=== PATIENT | female | born 1940 | race Caucasian/White ===

== ENCOUNTER 2017-06-16 11:30 | Inpatient (IN) ==
[2017-06-16] MEDS ORDERED: ZOFRAN IV ONE (12:40)
[2017-06-16] MEDS ORDERED: DILAUDID IM ONE (12:40)
[2017-06-16 12:45] LABS: MANUAL DIFF NEEDED? NO
[2017-06-16 12:51] LABS: BASO% 0.5 % (0.0-0.8); EOS# 0.16 X1000 (0.0-0.7); EOS% 1.9 % (0.0-10.0); HEMATOCRIT 39.9 % (37.0-47.0); HEMOGLOBIN 13.2 g/dL (12.0-16.0); IMM GRAN# 0.02 X1000 (0.0-0.04); IMM GRAN% 0.2 % (0.0-0.5); LYMPH# 1.77 X1000 (1.2-3.4); LYMPH% 21.3 % (20.5-51.1); MCH 31.3 PG (27-31); MCHC 33.1 g/dL (33-37); MCV 94.5 FL (81-99); MONO# 0.54 X1000 (0.11-0.59); MONO% 6.5 % (1.7-9.3); MPV 10.4 FL (7.4-10.4); NEUT% 69.6 % (42.2-75.2); PLT 198 X1000 (130-400); RBC 4.22 XMIL (4.2-5.4)
[2017-06-16 13:04] LABS: AGAP 9; ALBUMIN 4.3 g/dL (3.5-5.0); ALKALINE PHOSPHATASE 58 U/L (32-104); BUN 14 mg/dL (8-22); CALCIUM 9.4 mg/dL (8.8-10.2); CHLORIDE 100 mmol/L (98-107); COSMO 278; GOT 15 U/L (10-30); GPT 9 U/L (10-36); POTASSIUM 4.5 mmol/L (3.5-5.1); SODIUM 139 mmol/L (136-145); TCO2 30 mmol/L (25-35); TOTAL BILIRUBIN 0.48 mg/dL (0.20-1.00); TOTAL PROTEIN 6.9 g/dL (6.3-8.3)
--- NOTE | 2017-06-16 14:02 | Diag Imaging Result Doc PS360 ---
EXAM: CT ABD/PELVIS W/ IV CONT ONLY HISTORY: abd pain TECHNIQUE: CT abdomen and pelvis with intravenous contrast. Dose reduction protocol. COMPARISON: 01/19/2015 FINDINGS: Heart is mildly enlarged. The gallbladder has been removed. Biliary dilatation is similar to the prior exam. No focal hepatic abnormality. Normal spleen, pancreas, and adrenal glands. The right renal pelvis and calyces are mildly dilated. No dilatation beyond the ureteropelvic junction. No solid renal masses. Moderate atherosclerosis. No aneurysmal dilatation to the aorta. There is an anterior abdominal wall mesh from prior hernia repair. There is weakening weakening along the superior border which contains bowel, but no wall thickening or obstruction. Large hernia in the anterior pelvic wall containing multiple bowel loops. Several small bowel loops within this are dilated. Several lobes appear somewhat twisted. The descending colon lies within a hernia laterally, but it is not dilated. There are multiple surgical clips within and about the bowel loops in the mid and lower portion of the hernia. The uterus has been removed. There are scattered colonic diverticula. No pelvic mass. IMPRESSION: 1.Large anterior pelvic wall hernia or hernias containing multiple bowel loops. I believe there is at least a partial small bowel obstruction. 2.Cholecystectomy 3.I believe there is a right-sided ureteropelvic junction obstruction 4.Atherosclerosis 5.Diverticulosis 6.Hysterectomy Electronically signed by Mika Armas 06/16/2017 1:59 PM
[2017-06-16 16:04] LABS: URINE CULTURE NEEDED? NO; URINE MICRO REVIEW NEEDED? NO; URINE SOURCE CLEAN CATCH
[2017-06-16 16:09] LABS: BILIRUBIN URINE NEGATIVE (NEGATIVE); BLOOD URINE NEGATIVE (NEGATIVE); COLOR YELLOW; GLUCOSE URINE NEGATIVE (NEGATIVE); LEUKOCYTES URINE NEGATIVE (NEGATIVE); NITRITE URINE NEGATIVE (NEGATIVE); PROTEIN URINE NEGATIVE (NEGATIVE); SP GRAVITY URINE 1.015; TURBIDITY URINE CLEAR (CLEAR); UR EPITHELIAL CELLS <10 /HPF (<10); URINE BACTERIA NEGATIVE /HPF; URINE RBC <10 /HPF (<10); URINE WBC <10 /HPF (<10); UROBILINOGEN URINE NORMAL (NORMAL)
[2017-06-16] MEDS ORDERED: DILAUDID IV ONE (17:05)
--- NOTE | 2017-06-16 17:34 | PROVIDER DOCUMENTATION ---
This chart was entered by Jannette Jimenez Scribe, acting as scribe for Otilia Peter MD. HPI-Abdominal Pain/GI Problem - General Chief Complaint: Abdominal Pain Stated Complaint: ABDOMINAL PAIN Time Seen by Provider: 06/16/17 12:07 Source: patient Allergies/Adverse Reactions: Patient Allergies Allergy/AdvReac Type Severity Reaction Status Date / Time lorazepam [From Ativan] AdvReac Unknown Verified 06/16/17 11:55 Home Medications: Home Medication List Medication Instructions Recorded Confirmed Last Taken Type Dexlansoprazole [Dexilant] 60 mg PO BID 01/29/14 06/16/17 06/16/17 08:00 History Levothyroxine [Synthroid] 25 microgm PO DAILY 01/29/14 06/16/17 06/16/17 08:00 History Metoprolol Succinate E.r. [Toprol 25 mg PO DAILY #0 tablet 09/09/14 06/16/17 08:00 Rx Xl] Amlodipine Besylate [Norvasc] 5 mg PO DAILY 12/02/16 06/16/17 06/16/17 08:00 History Gabapentin 600 mg PO TID 12/02/16 06/16/17 06/16/17 08:00 History Apixaban [Eliquis] 5 mg PO BID #60 tablet 12/07/16 06/16/17 06/16/17 08:00 Rx LISINOpril [Prinivil] 20 mg PO DAILY 06/16/17 06/16/17 06/16/17 08:00 History - History of Present Illness-ABD Nature of Presenting Problems: Pt is a 76 year old female who came to the ED with a cc of her hernias causing her pain. Pt has two large hernias. Abdominal Pain Onset Location: reports: periumbilical, generalized abdomen Pain Radiation: reports: no radiation Quality of Pain: reports: sharp Onset/Duration: reports: unsure Timing: reports: still present Activities at Onset: reports: none Modifying Factors: improves with: nothing Associated Symptoms: reports: denies symptoms Last BM: unsure Dark Stools Present?: reports: none noticed Rectal Bleeding: reports: none Rectal Pain: reports: none Bruising or Bleeding Gums?: No Similar Symptoms Previously?: Yes Recently seen or treated by another doctor?: No Review of Systems - Adult - REVIEW OF SYSTEMS - ADULT Constitutional: denies: chills, fever Eyes: reports: no symptoms reported Ears, Nose, Mouth & Throat: denies: ear pain, throat pain Cardiovascular: reports: no symptoms reported Respiratory: denies: cough, shortness of breath Gastrointestinal: reports: abdominal pain. denies: diarrhea, nausea, vomiting Genitourinary: reports: no symptoms reported Musculoskeletal: denies: joint pain, neck pain Integumentary: reports: no symptoms reported Neurological: reports: no symptoms reported Psychiatric: reports: no symptoms reported Endocrine: reports: no symptoms reported Hematologic/Lymphatic: reports: no symptoms reported Allergic/Immunologic: reports: no symptoms reported All Other Systems: Reviewed and Negative Past History - Adult - PAST MEDICAL HISTORY-ADULT Review of Records: reports: Old Records Reviewed, Nursing Assessment Review Major Childhood Illnesses: reports: denies history Cardiovascular: reports: cardiac disease, HTN, hyperlipidemia, [place] Respiratory: reports: denies history Gastrointestinal: reports: obstruction, other (hernia) Obstetrical/Gynecological: reports: denies history Genitourinary: reports: denies history Musculoskeletal: reports: denies history Neurological: reports: CVA Psychiatric: reports: denies history Endocrine/Immune: reports: denies history Other Conditions: reports: deaf/hard of hearing - PRIOR SURGERIES/PROCEDURES Surgical/Procedure History: reports: cholecystectomy, bowel surgery (obstruction ) - PRIOR HOSPITALIZATIONS Prior Hospitalizations: reports: for similar symptoms - IMMUNIZATION STATUS Childhood Immunizations: UTD Flu Vaccine: NUTD - FAMILY HISTORY Family History: reviewed, not pertinent Physical Exam-General - PHYSICAL EXAM-ADULT Initial Vital Signs Reviewed: Yes - CONSTITUTIONAL General Appearance: alert, mild distress - EYES Eyes: PERRL/EOMI, pink conjunctivae - HEAD, EARS, NOSE, MOUTH & THROAT HENMT: normocephalic/atraumatic, moist mucous membranes - NECK Neck: non-tender, full range of motion - RESPIRATORY Respiratory: chest non-tender, lungs clear, normal breath sounds - CARDIOVASCULAR Cardiovascular: normal peripheral pulses, regular rate, rhythm - GASTROINTESTINAL (ABDOMEN) Abdominal Exam: tenderness, hernia - MUSCULOSKELETAL Back Exam: normal inspection, no CVA tenderness Extremity: normal range of motion, non-tender - SKIN Integumentary: normal color, normal turgor - NEUROLOGIC Neurologic: grossly normal - PSYCHIATRIC Psych/Mental Status: normal mood/affect, normal thought content, normal thought process, oriented x 3 Progress - PLAN OF CARE/RESULTS Progress/Plan/Lab Results: Vital Signs - 8 hr 06/16/17 11:32 Temperature 98.4 F Pulse Rate 65 Respiratory Rate 18 Blood Pressure 172/97 O2 Sat by Pulse Oximetry 97 Result Diagrams: 06/16/17 12:09 06/16/17 12:09 - CT/MRI 1 CT Study: Abdomen (1. large anterior pelvic wll hernia or hernias containing multiple bowel loops. I believe there is at least a partial small bowel obstruction. 2. cholecystectomy 3. i believe there is a right sided ureteropelvic junction obstrucion. 4. atherosclerosis. 5. diverticulosis. 6. hysterectomy.) - CONSULTS/PCP/HOSPITALIST Notification #1 *Consult/PCP/Hospitalist*: Dr. Asher Rizvi Discussed: 14:43 (Discussed with Dr. Sterling and agreed to see the pt ) Consult Disposition: F/U in office #2 Consult: Dr. Isreal Rizvi Discussed: 17:33 Reason/Comments: Possible sbo Departure - Departure Date of Disposition Decision: 06/16/17 Time of Disposition Decision: 17:33 DIAGNOSIS: Ventral hernia, Small bowel obstruction Disposition: [place] [id number] Certified Medical Emergency: Emergent Condition: Stable Additional Freetext Instructions: ED Follow Up Instructions: You have been treated by a care provider in the Emergency Department. These instructions are being provided to you so you can have an understanding of how to care for yourself upon discharge. Upon discharge from the Emergency Department, you are responsible for making arrangements for follow-up care by a physician of your choice. Take all prescribed medications as directed. Return to the Emergency Department immediately for any new or worsening symptoms. You may call the Physician Referral phone number at [phone] to obtain a list of Physicians who are taking new patients. Referrals and Follow-Ups: Alexys Jin MD [Primary Care Provider] - Neptali Sterling MD [ACTIVE STAFF PHYSICIAN] - - Critical Care Note This patient required my direct & personal management of CC.: No This chart was documented by the indicated scribe, (Jannette Jimenez Scribe) and accurately reflects the services I performed and decisions made by me, Otilia Peter MD, as attested by the provider's signature.
[2017-06-16] MEDS ORDERED: FLEET ENEMA PR ONE (17:35)
--- NOTE | 2017-06-16 18:07 | CONSULTATION ---
DATE OF CONSULTATION: 06/16/2017 REASON FOR CONSULTATION: Ventral hernia with small bowel obstruction. HISTORY OF PRESENT ILLNESS: This is a 76-year-old female, well known to me from previous admissions for similar symptoms who was in her usual state of health until this morning around 8 a.m. she experienced a lot of generalized abdominal crampy pain with nausea. She had a bowel movement this morning which was normal. She has been having regular bowel movements. There are no exacerbating or relieving factors. This is similar to her prior presentations. She has been evaluated by multiple surgeons at different facilities and elective hernia repair has been deferred due to the high morbidity and mortality risks for this patient. PAST MEDICAL HISTORY: Gastroesophageal reflux disease, hypertension, hypothyroidism, constipation, coronary artery disease, history of stroke, congestive heart failure, cardiomegaly. Paroxysmal atrial fibrillation. PAST SURGICAL HISTORY: Total abdominal hysterectomy, appendectomy, cholecystectomy, incisional hernia repair. FAMILY HISTORY: Diabetes, [place], hypertension and stroke. SOCIAL HISTORY: She is but has an attentive family. She denies tobacco or alcohol use. ALLERGIES: No known drug allergies but she has severe reactions to Ativan. HOME MEDICATIONS: Synthroid, Dexilant, Toprol, Norvasc, gabapentin, Eliquis, Prinivil. REVIEW OF SYSTEMS: Ten systems reviewed and negative except as noted above. PHYSICAL EXAM: Temperature 98 degrees, pulse 57, respiratory rate 16, blood pressure 178/87, O2 saturation 99%. General: This is an elderly obese female who is in no acute distress. HEENT: Normocephalic, atraumatic. Extraocular muscles intact. Pupils equal, round, reactive to light. Sclerae anicteric. Neck: Supple. No thyromegaly. CV: Regular rate and rhythm. Respiratory: Bilateral equal breath sounds. No work of breathing. GI: She has a large abdominal girth. She has a very large ventral hernia with multiple loops of what appeared to be small and large bowel near the skin. There appears to be of fairly significant loss of domain. The bowel loops are at least partially reducible. She is moderately tender diffusely. There is no overlying skin erythema or skin breakdown. She does have bowel sounds. There is no rebound or guarding. Extremities: No clubbing, cyanosis, or edema. Skin: Warm and dry. No rash. Musculoskeletal: Moves all extremities weakly, but equally. LABORATORY: White blood cell count 8, hemoglobin 13, platelet count 198,000. Complete metabolic profile reviewed and unremarkable. Urinalysis negative. IMAGING: CT of abdomen and pelvis was reviewed by me. There is a large anterior pelvic wall hernia or multiple hernias containing multiple bowel loops and at least a partial small bowel obstruction. The right renal pelvis and calices are mildly dilated which may indicate right-sided ureteropelvic junction obstruction. ASSESSMENT AND PLAN: A 76-year-old female with chronic gigantic ventral hernia with partial small bowel obstruction. Again, this is a very difficult problem for her. The operative risks are very high. I have recommended bowel rest, NG tube placement, hydration, gentle bowel stimulation through the nasogastric tube and continued observation. Hopefully we can get her referred to a center with more experience in complex hernia repair and abdominal wall reconstruction in the future. cc: Neptali Sterling MD
--- NOTE | 2017-06-16 18:46 | HISTORY AND PHYSICAL ---
TIME OF ADMISSION: 1745 PRIMARY CARE PHYSICIAN: Alexys Jin MD. SURGEON: Dr. freire/Dr. Sterling. PRESENTING COMPLAINT: Abdominal pain. HISTORY OF PRESENTING COMPLAINT: Ms. Jerry is a 76-year-old, female, with a history of a large ventral hernia that has been deemed inoperable. Has been admitted multiple times here. Has been evaluated by most of our surgeons. Patient has also been evaluated in [place] and they will not do any surgery because of her risk. Patient was last admitted over here in [facility], November 2016, was discharged after about 5 days for the same abdominal pain and small bowel obstruction. The patient referred that she was doing relatively fine until today. She started having severe periumbilical abdominal discomfort which progressively went from about 4 to about 8 to 9/10. Excruciating, periumbilical, radiating to both flanks. Associated with some nausea, but no vomiting. Regular bowel movement. Patient decided to come to the emergency room where she was evaluated and a CT scan of the abdomen revealed small bowel obstruction. Patient was evaluated by Dr. Sterling and my understanding is that he is going to observe the patient to see if the bowel obstruction resolves with medical therapy. PAST MEDICAL HISTORY: 1. Known ventral hernia with multiple small bowel obstructions. 2. Hypertension. 3. Hypothyroidism. 4. GERD. 5. History of cerebrovascular accident. PAST SURGICAL HISTORY: 1. Incisional repair of ventral hernia with multiple reversions. 2. Hysterectomy. 3. Open cholecystectomy. 4. Bilateral knee replacement. FAMILY HISTORY: Noncontributory. ALLERGIES: To lorazepam. SOCIAL HISTORY: Patient denies tobacco, alcohol, or drug use. REVIEW OF SYSTEMS: Fourteen-point review of systems conducted with the patient. Unremarkable except what we have in the HPI. Specifically, patient denies any chest pain, shortness of breath. No urinary symptoms. PHYSICAL EXAM: VITAL SIGNS: Blood pressure is 178/87, pulse of 57, respiration is 16, temperature 98.4. GENERAL EXAM: Ms. Jerry is a 76-year-old, obese female. She is on bed. Does not seems to be in any remarkable distress. HEENT: Mucosa is pink, slightly dry. Anicteric. Acyanotic. NECK: Supple. CHEST: Good air entry bilateral. No crepitations. No rhonchi. No accessory muscle use and no retractions. CARDIOVASCULAR: Regular rate and rhythm. There is no murmur, no rubs, no gallops. [place] is palpable at the 5th intercostal space. ABDOMEN: Soft. It is distended. There are 2 different swellings, more so periumbilical and in the lower abdomen, which is hard. It is tender to palpate and it is not reducible. There are bowel sounds in both swellings, which is consistent with her hernias. Bowel sounds present in other parts of the abdomen. There is no hepatosplenomegaly. There are multiple scars on the anterior abdominal wall. EXTREMITIES: No pedal edema. Distal pulses are present. 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 Executive function seems to be intact. Cranial nerves 2-12 have been grossly examined. They are unremarkable except that patient is slightly hard of hearing. Motor is 5/5 in all extremities. There is no sensory deficit. PSYCH: Patient has good judgment and understanding of her disease. LABORATORY DATA: WBC is 8.32, hemoglobin is 13.2, platelet count of 198. There is no abnormal abnormality found in the differential. Sodium is 138, potassium is 4.5, chloride is 100, bicarb is 30, BUN is 14, creatinine 0.4. Urinalysis is completely unremarkable. A CT scan of the abdomen and pelvis shows a large anterior pelvis wall hernia or hernias, containing multiple bowel loops. At least a partial small bowel obstruction. Suspicion of a right-side ureteropelvic junction obstruction. ASSESSMENT: Ms. Jerry is a 76-year-old, female with multiple admissions for abdominal pain, secondary to small-bowel obstruction from ventral hernia. She has presented with similar complaint. 1. Intractable abdominal pain secondary to partial small bowel obstruction. 2. Large anterior abdominal wall hernias with possible incarceration. 3. Questionable right ureteropelvic junction obstruction. 4. Gastroesophageal reflux disease. PLAN: We are going to admit the patient to the medical floor. NG tube has already been ordered by the surgeons. We will also consult Urology to evaluate for the possible right ureteropelvic junction with mild hydronephrosis. We will do an ultrasound to double check on that. We will start the patient on adequate hydration. Hopefully, the partial small bowel obstruction resolves on its own without need for any intervention. We will repeat a KUB tomorrow morning to follow up on the gas distention. cc: Ruddy Sanchez MD
[2017-06-16] MEDS: NS 1,000 ML IV SCH (19:08)
[2017-06-16] MEDS: MORPHINE IV PRN (20:54)
--- NOTE | 2017-06-16 21:37 | Diag Imaging Result Doc PS360 ---
EXAM: CHEST/ABD TUBE PLACEMENT HISTORY: check tube placement TECHNIQUE: Portable chest abdomen COMPARISON: None. FINDINGS: A nasogastric tube overlies the esophagus and stomach. The lower lungs are clear. No free air beneath the diaphragm. IMPRESSION: Nasogastric tube overlies the esophagus and stomach. Electronically signed by Mika Armas 06/16/2017 9:34 PM
[2017-06-17] MEDS: MINERAL OIL PO SCH ×5 (04:35→21:57)
[2017-06-17] MEDS: NEURONTIN PO SCH ×5 (04:35→21:58)
[2017-06-17] MEDS: MILK OF MAGNESIA PO SCH ×5 (04:36→21:58)
[2017-06-17] MEDS: NS 1,000 ML IV SCH ×2 (06:29→21:59)
[2017-06-17] MEDS: SYNTHROID PO SCH (06:29)
[2017-06-17 06:56] LABS: MANUAL DIFF NEEDED? NO
[2017-06-17 07:07] LABS: BASO% 0.5 % (0.0-0.8); EOS% 3.2 % (0.0-10.0); HEMATOCRIT 40.8 % (37.0-47.0); HEMOGLOBIN 13.2 g/dL (12.0-16.0); LYMPH# 1.22 X1000 (1.2-3.4); LYMPH% 19.8 % (20.5-51.1); MCH 30.7 PG (27-31); MCHC 32.4 g/dL (33-37); MCV 94.9 FL (81-99); MONO# 0.63 X1000 (0.11-0.59); MONO% 10.2 % (1.7-9.3); MPV 10.1 FL (7.4-10.4); NEUT% 66.3 % (42.2-75.2); PLT 188 X1000 (130-400)
[2017-06-17 07:11] LABS: INR 0.98; PROTIME 10.3 Seconds (9.2-11.7)
[2017-06-17 07:31] LABS: AGAP 9; ALBUMIN 3.7 g/dL (3.5-5.0); ALKALINE PHOSPHATASE 66 U/L (32-104); BUN 12 mg/dL (8-22); CALCIUM 8.8 mg/dL (8.8-10.2); CHLORIDE 104 mmol/L (98-107); COSMO 283; GOT 24 U/L (10-30); GPT 15 U/L (10-36); POTASSIUM 3.9 mmol/L (3.5-5.1); SODIUM 142 mmol/L (136-145); TCO2 29 mmol/L (25-35); TOTAL BILIRUBIN 0.62 mg/dL (0.20-1.00); TOTAL PROTEIN 6.1 g/dL (6.3-8.3)
--- NOTE | 2017-06-17 08:09 | Diag Imaging Result Doc PS360 ---
EXAM: US RENAL 2 (RETROPER) COMPLETE HISTORY: right hydronephrosis TECHNIQUE: COMPARISON: CT from 06/16/2017 FINDINGS: The left kidney measures 12.3 x 5.3 x 5.0 cm. No renal stone or hydronephrosis. Normal echogenicity and cortical thickness. The urinary bladder is only mildly distended. The right kidney measures 11.5 x 4.2 x 4.2 cm. Normal echogenicity and cortical thickness. The pelvis is mildly dilated. No stones. IMPRESSION: Dilated right renal pelvis, but otherwise normal renal ultrasound. Electronically signed by Mika Armas 06/17/2017 8:07 AM
--- NOTE | 2017-06-17 08:15 | Diag Imaging Result Doc PS360 ---
EXAM: ABDOMEN FLAT/UPRIGHT HISTORY: sbo TECHNIQUE: Three views COMPARISON: 06/16/2017 FINDINGS: No free air beneath the diaphragm. There is a nasogastric tube over the stomach. There are several small bowel loops which remain slightly distended with air. The most distended loops are low lying over the low pelvis and right hip. No organomegaly. There is scoliosis with degenerative spine changes. Multiple surgical clips overlying the abdomen and pelvis. IMPRESSION: Persistent obstruction. Electronically signed by Mika Armas 06/17/2017 8:13 AM
[2017-06-17] MEDS: TOPROL XL PO SCH (08:51)
[2017-06-17] MEDS ORDERED: GOLYTELY PO ONE (09:00)
[2017-06-17] MEDS: MORPHINE IV PRN ×4 (09:25→21:58)
[2017-06-17] MEDS: ZOFRAN IV PRN ×3 (13:46→21:58)
--- NOTE | 2017-06-17 15:18 | PROGRESS NOTE ---
DATE: 06/17/2017 SUBJECTIVE: Today, Ms. Jerry refers to be still hurting in the abdomen, but she thinks is a little less than yesterday. OBJECTIVE: Vital Signs: Blood pressure is 115/54, pulse of 58, respirations 18, temperature 98.2 degrees. Patient is saturating 96% on room air. General: Ms. Jrery is a 76-year-old female. She is in bed not seemingly distressed. HEENT: Mucosa is slightly dry but anicteric and acyanotic. Neck is supple. Chest: Good air entry bilateral. No crepitations. No rhonchi. Cardiovascular: Regular rate and rhythm. Abdomen is soft. It is mildly tender around the hernia defects. Extremities: No pedal edema. OVERHAULER: Patient is awake and alert and oriented x4. There is no focal neurological deficit. LABORATORY DATA: Labs have been reviewed. CBC is completely normal. A CMP is completely normal. TSH is 0.47. An ultrasound of the renal shows dilated right renal pelvis but, otherwise, normal renal ultrasound. ASSESSMENT: 1. Intractable abdominal pain secondary to small bowel obstruction. 2. Large anterior abdominal wall hernias with possible incarcerations. 3. Right, mildly dilated uteropelvic junction. Patient is yet to be evaluated by urology. 4. Hypothyroidism. 5. Gastroesophageal reflux disease. In general, Ms. Jerry is relatively stable and seems to have shown some small progress. We are going to continue with the NG tube suction for bowel decompression, adequate hydration, and repeat her KUB for tomorrow morning to follow up on the bowel pattern. cc: Ruddy Sanchez MD
--- NOTE | 2017-06-17 15:27 | PROGRESS NOTE ---
DATE: 06/17/2017 SUBJECTIVE: The patient says her pain has improved some overnight. She has not passed any gas yet. OBJECTIVE: Vital signs: She is afebrile. Vital signs are stable. General: She is alert and oriented x3. No acute distress. CV: Regular rate and rhythm. Respiratory: No work of breathing. Gastrointestinal: Soft, less tender to palpation. Her large ventral hernias remain partially reducible. LABORATORY: White blood cell count 6, hemoglobin 13. Metabolic profile reviewed and unremarkable. IMAGING: Her abdominal x-ray this morning shows some persistent distended loops of small bowel, slightly distended with air. ASSESSMENT AND PLAN: A 76-year-old female with small-bowel obstruction associated with chronic gigantic ventral hernia. She has prohibitive operative risks. We are going to continue NG tube and bowel rest and place some GoLYTELY slowly through the NG tube. cc: Neptali Sterling MD
--- NOTE | 2017-06-17 19:00 | CONSULTATION ---
DATE OF CONSULTATION: 06/17/2017 ATTENDING AND REFERRING PHYSICIAN: Hospitalist. HISTORY OF PRESENT ILLNESS: This 76-year-old female was admitted with small bowel obstruction secondary to ventral hernias. A CT scan revealed possible right UPJ obstruction. The patient denies any urologic problems. She has had no flank pains. She denies any previous urologic surgery. She has no history of kidney stones. She states she rarely has a urinary tract infection. She has no history of hematuria. She states she was never told she had any abnormalities of her urinary system. PAST MEDICAL HISTORY: Hypertension, hypothyroidism, gastroesophageal reflux disease, peripheral vascular disease with history of CVA. She has no sequelae. She states she does have shortness of breath and has to have a very cool room or she becomes very uncomfortable. CURRENT MEDICATIONS: Are documented on the chart. PAST SURGICAL HISTORY: Cholecystectomy, ventral hernia repair with many revisions, bilateral knee arthroplasties. SOCIAL HISTORY: No tobacco or alcohol use. ALLERGIES: She is allergic to lorazepam. REVIEW OF SYSTEMS: She states she feels better since the NG tube was placed. She states she has this every few months or once a year and after NG tube decompression she feels much better. She currently states she is feeling better. She denies any problems with heart disease, diabetes, or history of seizures. PHYSICAL EXAMINATION: General: An obese, age apparent, normally developed, white female, oriented in all ways and cooperative. HEENT: Has an NG-tube in place. Otherwise normal. Lungs: Clear. Cardiovascular: Regular rate and rhythm. Abdomen: Obese with normal bowel sounds. Mildly tender with palpation but no guarding or rebound. Back: No CVA tenderness. Genitourinary: Deferred. Extremities: No clubbing, cyanosis, or edema. Neuro: No focal deficits. LABORATORY EVALUATION: Had normal serum electrolytes, BUN 12 creatinine 0.7. CBC has a white count of 6.17, hemoglobin 13.2, hematocrit of 40.8 and platelets are 188,000. Her CT scan is as noted in the HPI. A renal ultrasound confirms an extra renal pelvis which is a normal anatomic variant. She does not have ureteropelvic junction obstruction. IMPRESSION: Extrarenal pelvis which is a normal anatomic variant, normal urological evaluation. PLAN: This was discussed with the patient. She states she thought everything was normal in her urinary system. Nothing to add from a urological point of view. Thank you for this consultation. cc: El Burton MD
[2017-06-18] MEDS: MORPHINE IV PRN ×3 (02:36→21:14)
[2017-06-18] MEDS: ZOFRAN IV PRN ×3 (02:41→21:14)
[2017-06-18] MEDS: SYNTHROID PO SCH (06:16)
[2017-06-18] MEDS: NEURONTIN PO SCH ×3 (06:16→21:14)
[2017-06-18 06:30] LABS: MANUAL DIFF NEEDED? NO
[2017-06-18 06:37] LABS: BASO% 0.9 % (0.0-0.8); EOS# 0.25 X1000 (0.0-0.7); EOS% 3.6 % (0.0-10.0); HEMATOCRIT 38.9 % (37.0-47.0); HEMOGLOBIN 12.6 g/dL (12.0-16.0); LYMPH# 1.67 X1000 (1.2-3.4); LYMPH% 23.8 % (20.5-51.1); MCH 30.7 PG (27-31); MCHC 32.4 g/dL (33-37); MCV 94.9 FL (81-99); MONO# 0.65 X1000 (0.11-0.59); MONO% 9.3 % (1.7-9.3); NEUT% 62.4 % (42.2-75.2); PLT 170 X1000 (130-400)
[2017-06-18 06:57] LABS: AGAP 12; BUN 10 mg/dL (8-22); CALCIUM 8.8 mg/dL (8.8-10.2); CHLORIDE 104 mmol/L (98-107); COSMO 286; MAGNESIUM 2.5 mg/dL (1.5-2.7); POTASSIUM 4.5 mmol/L (3.5-5.1); SODIUM 144 mmol/L (136-145); TCO2 28 mmol/L (25-35)
[2017-06-18] MEDS: TOPROL XL PO SCH (08:04)
[2017-06-18] MEDS: MINERAL OIL PO SCH ×2 (08:04→21:14)
[2017-06-18] MEDS: MILK OF MAGNESIA PO SCH ×2 (08:04→21:13)
[2017-06-18] MEDS: NS 1,000 ML IV SCH ×2 (11:00→23:04)
--- NOTE | 2017-06-18 11:21 | Diag Imaging Result Doc PS360 ---
EXAM: ABDOMEN FLAT/UPRIGHT INDICATION: sbo TECHNIQUE: 3 views COMPARISON: 06/17/2017 FINDINGS: The NG tube is in stable position. There are persistent moderate distended loops of bowel involving the mid and lower abdomen consistent with known obstruction. It is approximately stable. There is no evidence of large volume free abdominal gas. The abdomen is stable, otherwise. IMPRESSION: Approximately stable distended loops of bowel as described. Electronically signed by Francisco Nunez 06/18/2017 11:19 AM
--- NOTE | 2017-06-18 14:29 | PROGRESS NOTE ---
DATE: 06/18/2017 SUBJECTIVE: The patient continues to complain of some abdominal pain. She is nauseated, but not vomiting. She has passed some gas overnight. OBJECTIVE: Vital Signs: She is afebrile. Vital signs are stable. General: She is awake and alert. No acute distress. Gastrointestinal: Soft, nondistended. She is moderately tender throughout. This is unchanged. No rebound or guarding. IMAGING: Her abdominal x-ray shows some stable, distended loops of bowel in the mid to lower abdomen. I do see quite a bit of colonic gas. ASSESSMENT AND PLAN: This is a 76-year-old female with a complicated large ventral hernia and associated small bowel obstruction. This appears to be slowly resolving. We will continue nasogastric tube decompression, bowel rest and slow bowel stim with GoLYTELY. cc: Neptali Sterling MD
--- NOTE | 2017-06-18 14:41 | PROGRESS NOTE ---
DATE: 06/18/2017 SUBJECTIVE: Today Ms. Jerry referred to be doing okay. Continues to have abdominal pain. No bowel movement. OBJECTIVE: Vital signs: Blood pressure is 137/69, pulse of 64, respirations 20 , temperature 98.4 degrees. General Appearance: Ms. Jerry is a 76-year-old female. She is in bed, no distress. HEENT: Mucosa is pink and moist. Anicteric. Acyanotic. Neck: Supple. Chest: Good air entry bilaterally. No crepitations. Cardiovascular: Regular rate and rhythm. Abdomen: Distended. Mildly tender around the hernia defects. Extremities: No pedal edema. PATIENT ACCESS REGISTRAR: Patient is awake, alert, and hard of hearing. LABORATORY DATA: WBC 7.02, hemoglobin is 12.6, platelet count of 178. Chemistries reviewed, completely normal. A KUB, which was done today, shows approximately stable distended loops of bowel. ASSESSMENT: 1. Intractable abdominal pain secondary to partial small bowel obstruction. 2. Large anterior ventral hernias with possible incarcerations. 3. Right, mildly dilated uteropelvic junction. The patient has already been evaluated by urology and they think this is a normal variant. 4. Hypothyroidism, stable. 5. Gastroesophageal reflux disease. So today we are going to continue the NG tube. We are going to continue NPO. Repeat the KUB for tomorrow morning. Patient is being followed also by Dr. Sterling and Dr. Burton. cc: Ruddy Sanchez MD MTDD
[2017-06-19] MEDS: ZOFRAN IV PRN (01:43)
[2017-06-19] MEDS: MORPHINE IV PRN (01:43)
[2017-06-19] MEDS: SYNTHROID PO SCH (06:51)
[2017-06-19] MEDS: NEURONTIN PO SCH ×3 (06:51→21:19)
--- NOTE | 2017-06-19 08:27 | Diag Imaging Result Doc PS360 ---
EXAM: KUB ABDOMEN INDICATION: SBO TECHNIQUE: 2 views COMPARISON: 06/18/2017 FINDINGS: NG tube is in stable position. The small bowel distention appears to have improved during the interval. Much of the abdominal gas is colonic on this study. The abdomen is stable, otherwise. IMPRESSION: Interval modest improvement of gaseous distention of small bowel. Electronically signed by Francisco Nunez 06/19/2017 8:24 AM
[2017-06-19] MEDS: MINERAL OIL PO SCH ×2 (09:10→21:19)
[2017-06-19] MEDS: MILK OF MAGNESIA PO SCH ×2 (09:10→21:19)
[2017-06-19] MEDS: TOPROL XL PO SCH (09:11)
--- NOTE | 2017-06-19 09:51 | PROGRESS NOTE ---
DATE: 06/19/2017 SUBJECTIVE: The patient says she feels significantly better. No more abdominal pain, nausea, or vomiting. She has had multiple bowel movements. OBJECTIVE: Vital Signs: She is afebrile. Vital signs are stable. She has had 3 recorded bowel movements. General: She is alert and oriented x3. No acute distress. Gastrointestinal: Soft, nontender, and nondistended. Stable partially incarcerated large ventral hernias. She does have good bowel sounds. Imaging: Her abdominal x-ray shows decrease in the small bowel dilation and increase in the colonic gas. ASSESSMENT/PLAN: A 76-year-old female with chronically incarcerated, partially reducible large ventral hernias. Her small bowel obstruction which was present on admission appears to be resolving. We will plan on removing the nasogastric tube today and starting her on a clear liquid diet and advance as tolerated. cc: Neptali Sterling MD
[2017-06-19] MEDS: NS 1,000 ML IV SCH ×2 (13:14→18:42)
--- NOTE | 2017-06-19 14:11 | PROGRESS NOTE ---
DATE: 06/19/2017 SUBJECTIVE: Today Ms. Jerry refers to be doing a lot better. She says she has had multiple bowel movements and that she really wants to see if she can eat anything. OBJECTIVE: General: Ms. Jerry is a 76-year-old female, she is in bed. She is not in any distress. HEENT: Mucosa is pink and moist. Anicteric. Acyanotic. Neck: Supple. Chest: Was clear. Cardiovascular: Regular rate and rhythm. Abdomen: Is soft, is nontender. There is still the ventral hernia defects but this seems reducible. LOKIE ENGINEER: Patient is awake and alert and oriented x4. There is no focal neurological deficit. LABORATORY DATA: None for today. DIAGNOSTIC STUDIES: A KUB which was done this morning shows interval modest improvement of gas distention of the small bowel. ASSESSMENT: 1. Partial small bowel obstruction. This seems to be improving. 2. Large anterior ventral hernia with possible incarceration improved. 3. Hypothyroidism. 4. Gastroesophageal reflux disease. 5. Obesity with body mass index of 35.6. So in general Ms. Jerry refers to be doing much better. X-rays also shows improvement and patient has been evaluated by Dr. Sterling and the plan is to remove the NG tube if residuals are low after it is been clamped for 6 hours and then start her on some clear liquid diet. cc: Ruddy Sanchez MD
[2017-06-20] MEDS: NS 1,000 ML IV SCH (01:35)
[2017-06-20 06:21] VITALS: BP 137/72
[2017-06-20] MEDS: SYNTHROID PO SCH (06:35)
[2017-06-20] MEDS: NEURONTIN PO SCH (06:35)
[2017-06-20 08:03] LABS: CHLORIDE 103 mmol/L (98-107); SODIUM 142 mmol/L (136-145)
[2017-06-20 08:14] LABS: AGAP 14; BUN 8 mg/dL (8-22); CALCIUM 8.6 mg/dL (8.8-10.2); COSMO 283; POTASSIUM 4.4 mmol/L (3.5-5.1); TCO2 26 mmol/L (25-35)
[2017-06-20] MEDS: TOPROL XL PO SCH (08:29)
[2017-06-20] MEDS: MINERAL OIL PO SCH (08:29)
[2017-06-20] MEDS: MILK OF MAGNESIA PO SCH (08:29)
--- NOTE | 2017-06-20 18:04 | PROGRESS NOTE ---
DATE: 06/20/2017 SUBJECTIVE: The patient denies abdominal pain, nausea, or vomiting. She has had several bowel movements and is passing gas. She is tolerating a liquid diet. OBJECTIVE: Vital Signs: She is afebrile. Vital signs are stable. General: She is alert and oriented x4. No acute distress. Gastrointestinal: Soft, nontender, nondistended. Stable ventral hernia. ASSESSMENT AND PLAN: A 76-year-old female with stable ventral hernia. Her bowel obstruction has resolved. She is to be discharged today. cc: Neptali Sterling MD
--- NOTE | 2017-06-21 06:50 | DISCHARGE SUMMARY ---
ADMISSION DATE: 06/16/2017 DISCHARGE DATE: 06/20/2017 CONSULTATIONS: Neptali Sterling MD with General Surgery and El Burton MD. PERTINENT PROCEDURES: 1. Abdomen and pelvis CT showed a large anterior palpable hernia or hernias containing multiple bowel loops with at least a partial small bowel obstruction, cholecystectomy, right-sided ureteropelvic junction obstruction, arterial sclerosis, diverticulosis, hysterectomy. 2. Renal ultrasound showed a dilated right renal pelvis but otherwise normal renal ultrasound. DISCHARGE DIAGNOSES: 1. Partial small bowel obstruction, resolved. 2. Large anterior ventral hernia with possible incarceration, status post nasogastric tube, improved, tolerating full liquid diet. 3. Hypothyroidism, aware. 4. Gastroesophageal reflux disease. Continue proton pump inhibitor. 5. Obesity with a body mass index of 35.6. 6. Questionable right ureteropelvic junction obstruction which was ruled a normal anatomic variant with a normal urologic evaluation by Dr. Burton. HOSPITAL COURSE: Briefly, Ms. Jerry is a 76-year-old female who is very well known to our service for history of a large ventral hernia that has been deemed inoperable. She has been admitted multiple times here for small-bowel obstruction. She has been evaluated by most of our surgeons here as well as outlying facilities. They will not do surgery on the patient because of her risk factors. She was last admitted here at [facility] in November of 2016 and was discharged after about 5 days for the same abdominal pain with small-bowel obstruction. She referred that she had been doing relatively fine until the day she came in when she started having severe periumbilical abdominal discomfort which progressively went from about a 4 to an 8 to 9/10, excruciating, radiating to both flanks, associated with some nausea but no vomiting. She had a regular bowel movement that morning. An abdomen and pelvis CT did show a large anterior pelvic wall hernia and hernia containing multiple bowel loops with partial small-bowel obstruction and a right-side ureteropelvic junction obstruction. An NG tube was placed. The patient underwent a renal ultrasound. Dr. Sterling was consulted and he recommended bowel rest, NG tube and hydration. Dr. Burton also assessed the patient for her extrarenal pelvis, which he said was a normal anatomic variant. Ms. Jerry slowly had improvement of her small-bowel obstruction. She was still having abdominal pain with nausea but no vomiting. She continued with her NG tube. Slowly she did start to feel better. She was slowly started on some GoLYTELY. She started having multiple bowel movements. She significantly started to feel better. Her abdominal pain and nausea resolved. Her NG tube was removed. She was started on a clear liquid diet and advanced to a full liquid diet which she has tolerated well. Dr. Sanchez has assessed the patient today and she is appropriate for discharge home. VITAL SIGNS: Temperature is 97.9 degrees, heart rate 57, blood pressure is 137/72, O2 is 96% on room air. DISCHARGE DIET: Full liquid and will advance as tolerated. DISCHARGE MEDICATIONS: 1. Norvasc 5 mg p.o. daily. 2. Eliquis 5 mg p.o. b.i.d. 3. Dexilant 60 mg p.o. b.i.d. 4. Gabapentin 600 mg p.o. t.i.d. 5. Synthroid 25 mcg p.o. daily. 6. Prinivil 20 mg p.o. daily. 7. Milk of magnesia 30 mL p.o. b.i.d. 8. Toprol-XL 25 mg p.o. daily. 9. Mineral oil 30 mL p.o. b.i.d. or 1 bottle. FOLLOWUP: Ms. Jerry is being discharged home. She will need to follow up with her primary care physician, Dr. Alexys Jin in 1-[address] Sterling as instructed. She will return to the ED for any worsening of symptoms. DISCHARGE TIME: 30 minutes. Dictated by MAHOGANY Roman for Ruddy Sanchez MD cc: Ruddy Sanchez MD
== END 2017-06-20 13:17 | disposition home or self-care (01) ==
LOC: SUPCPDRO → ED 11:30 → 3N 18:17
PROVIDERS: ATTEND Internal Medicine

== ENCOUNTER 2018-12-20 12:32 | Inpatient (IN) ==
[2018-12-20] MEDS ORDERED: NS 500 ML IV ONE (14:33)
[2018-12-20] MEDS ORDERED: MORPHINE IV ONE (14:34)
[2018-12-20] MEDS ORDERED: ZOFRAN IV ONE (14:34)
[2018-12-20] MEDS ORDERED: NS 1,000 ML ONE (15:36)
[2018-12-20 15:39] LABS: BASO# 0.01 X1000 (0.0-0.2); BASO% 0.1 % (0.0-0.8); EOS# 0.11 X1000 (0.0-0.7); EOS% 1.1 % (0.0-10.0); HEMATOCRIT 40.5 % (37.0-47.0); HEMOGLOBIN 12.8 g/dL (12.0-16.0); IMM GRAN# 0.03 X1000 (0.0-0.04); IMM GRAN% 0.3 % (0.0-0.5); LYMPH# 1.56 X1000 (1.2-3.4); LYMPH% 15.6 % (20.5-51.1); MCH 26.6 PG (27-31); MCHC 31.6 g/dL (33-37); MONO# 0.61 X1000 (0.11-0.59); MONO% 6.1 % (1.7-9.3); MPV 10.4 FL (7.4-10.4); NEUT# 7.65 X1000 (1.4-6.5); NEUT% 76.8 % (42.2-75.2); PLT 238 X1000 (130-400); RBC 4.82 XMIL (4.2-5.4); RDW 14.9 % (11.5-14.5); WBC 9.97 X1000 (4.8-10.8)
[2018-12-20 15:57] LABS: AGAP 12; ALB/GLOB RATIO 1.2; ALBUMIN 4.2 g/dL (3.5-5.0); ALKALINE PHOSPHATASE 84 U/L (32-104); AMYLASE 24 U/L (20-200); BUN 13 mg/dL (8-22); CALCIUM 9.3 mg/dL (8.8-10.2); CHLORIDE 102 mmol/L (98-107); COSMO 280; CREATININE 0.7 mg/dL (0.5-0.9); ESTIMATED GFR > 60; GLUCOSE 116 mg/dL (70-104); GOT 18 U/L (10-30); GPT 13 U/L (10-36); LIPASE 21 U/L (13-60); POTASSIUM 4.2 mmol/L (3.5-5.1); SODIUM 140 mmol/L (136-145); TCO2 26 mmol/L (25-35); TOTAL BILIRUBIN 0.24 mg/dL (0.20-1.00); TOTAL PROTEIN 7.6 g/dL (6.3-8.3)
--- NOTE | 2018-12-20 17:19 | Diag Imaging Result Doc PS360 ---
CT ABD/PELVIS W/IV CONT ONLY - 12/20/2018 INDICATION: abd pain/distention, large inguinal hernia COMPARISON: 11/07/2018 FINDINGS: The lung bases are clear and the heart size is normal. There our large complex ventral and inguinal hernias, stable from prior. There is a recurrent small bowel obstruction involving loops of small bowel in both the ventral hernia and right inguinal hernia sacs. There is some gas and stool throughout the colon and rectum. Urinary bladder remains normal. IMPRESSION: Partial recurrent small bowel obstruction involving both the ventral hernia and right inguinal hernia sacs. The obstructed bowel loops are actually slightly less dilated than prior. This exam was performed using automated exposure control, adjustment of mA or kV according to patient size, and/or use of iterative reconstruction technique Electronically signed by Archie Bermudez 12/20/2018 5:16 PM
[2018-12-20] MEDS ORDERED: DILAUDID IV ONE (17:21)
[2018-12-20] MEDS ORDERED: SODIUM CHLORIDE 0.9% INJ PRN (18:11)
[2018-12-20] MEDS ORDERED: LOPRESSOR IV PRN (18:11)
[2018-12-20 19:12] LABS: URINE SOURCE CLEAN CATCH
[2018-12-20 19:25] LABS: BILIRUBIN URINE NEGATIVE (NEGATIVE); BLOOD URINE NEGATIVE (NEGATIVE); COLOR YELLOW; GLUCOSE URINE NEGATIVE (NEGATIVE); KETONE URINE TRACE mg/dL (NEGATIVE); LEUKOCYTES URINE NEGATIVE (NEGATIVE); NITRITE URINE NEGATIVE (NEGATIVE); PH URINE 6.5; PROTEIN URINE NEGATIVE (NEGATIVE); SP GRAVITY URINE 1.024; TURBIDITY URINE CLEAR (CLEAR); UROBILINOGEN URINE NORMAL (NORMAL)
[2018-12-20 19:29] LABS: UR EPITHELIAL CELLS <10 /HPF (<10); URINE BACTERIA NEGATIVE /HPF; URINE RBC <10 /HPF (<10); URINE WBC <10 /HPF (<10)
--- NOTE | 2018-12-20 20:10 | HISTORY AND PHYSICAL ---
PRIMARY CARE PROVIDER: Dr. Jin. CHIEF COMPLAINT: Abdominal pain and sudden right bulge in the right lower quadrant. HISTORY OF PRESENT ILLNESS: Ms. Marilee Jerry is an 78-year-old female with a medical history of frequent small bowel obstructions since 1995 after hernia repair. Apparently, she is a nonsurgical candidate for any hernia repairs. She started having abdominal pain and swelling that started around 6:00 this morning. She has been having some dry heaves with nausea. She did go ahead and eat breakfast, which was egg and toast. She did have a large soft bowel movement and some chills. 2. Assessment reveals a right lower quadrant significant bulge that is tight with palpation, tender in all four quadrants, and her imaging CT of the abdomen and pelvis reveals that she has a partial small bowel obstruction that also includes or involves the ventral hernia and the right inguinal hernia. Dr. Gagnon has been made aware of this patient and will admit to the medical floor. She will have NG tube and will do bowel rest and IV fluids. PAST MEDICAL HISTORY: 1. Recurrent small bowel obstructions since 1995. 2. Ventral hernia that is inoperable. 3. Hypertension. 4. Hypothyroidism. 5. GERD. 6. Diabetes mellitus type 2. 7. Paroxysmal atrial fibrillation. 8. History of CVA. SURGICAL HISTORY: 1. Multiple abdominal surgeries with revisions and mesh placement. 2. Hysterectomy. 3. Cholecystectomy. 4. Appendectomy. 5. Bilateral knee arthroplasty. SOCIAL HISTORY: Denies tobacco, alcohol, or illicit drug use. She is very hard of hearing. FAMILY HISTORY: Denies. ALLERGIES: Ativan. HOME MEDICATIONS: Have not been verified, but what is listed from June of 2018 is Norvasc, Dexilant, diltiazem, Neurontin, Synthroid, Zofran, potassium, Eliquis, and mineral oil. REVIEW OF SYSTEMS: A 14-point review of systems are complete and all are negative except for those mentioned above in the HPI. The positives are dry heaves with nausea, swelling, and sudden swelling in the right lower quadrant with abdominal tenderness throughout, otherwise no other complaints. She does have chills as well. PHYSICAL EXAMINATION: VITAL SIGNS: Temperature 97.6. Heart rate 80. Respiratory rate 18. Blood pressure 168/92. O2 saturation 100% on room air. She is 5 ft 7 inches tall and weighs 220 pounds, BMI of 34.5. GENERAL: Ms. Marilee Jerry is an 78-year-old female. She is in no acute distress. She is able to answer questions appropriately. HEENT: Atraumatic and normocephalic. Pupils are equal, round and reactive to light. Extraocular movements were intact. Mucous membranes are dry. Poor dentition with teeth missing. NECK: Trachea midline. CARDIOVASCULAR: S1, S2, regular rate and rhythm. No rubs, gallops, or murmurs. No lower extremity edema. +2 dorsalis and radial pulses. Negative for JVD or carotid bruits. PULMONARY: Clear to auscultation with bilateral breath sounds. No accessory muscle use or work of breathing noted on room air. GASTROINTESTINAL: Semifirm, distended, hypoactive. Right lower quadrant with a bulge that is firm and tender in all four quadrants with palpation. EXTREMITIES: Moves all extremities equally. Decreased range of motion. 4/5 strength in all extremities. NEUROLOGICAL: Alert and oriented x3. Follows commands. Sensory is intact. SKIN: Warm, dry, and intact. LABORATORY DATA: White blood cells 9,000, hemoglobin 12, hematocrit 40, platelet count 238. Sodium 140, potassium 4.2, BUN 13, creatinine 0.7, glucose 116. Calcium 9.3, bilirubin 0.24, AST 18, ALT 13. Albumin 4.2. Amylase 24. Lipase 21. Lactate 1.3. IMAGING: Abdominopelvic CT which reveals partial recurrent small bowel obstruction involving both the ventral hernia and right inguinal hernia sacs. The obstructive bowel loops are actually slightly less dilated than prior. ASSESSMENT AND PLAN: 1. Partial recurrent small bowel obstruction involving the ventral hernia and right inguinal hernia. She will have a nasogastric tube placed due to her distended abdomen. Dr. Gagnon is aware and has been consulted. Apparently this hernia that she has in an inoperable hernia, so likely will just have to be all symptomatic treatment. Will do intravenous fluids at 125 an hour and hopefully this obstruction will quickly resolve. She takes multiple medications to help with bowel movements. She has bowel movements every single day and they are usually soft. She states that the mineral oil helps more than anything for her bowels. 2. Hypertension. Currently holding oral medications. Blood pressure is stable. 3. Hypothyroidism. Synthroid changed to intravenous. 4. Gastroesophageal reflux disease. She will be on intravenous Protonix. 5. Diabetes mellitus type 2. Will do patterned blood glucoses, sliding scale insulin. 6. Deep venous thrombosis prophylaxis. Sequential compression devices. Dictated by MAHOGANY Valenzuela for Jean Paul Mcgregor MD Addendum: Patient seen and examined by myself. Agree with MAHOGANY note. It reflects my assessment and plan. Patient is being admitted to hospital for recurrent SBO. Will place NG tube, consult Surgery, start IV fluids and check a abdomen x ray in the morning. Will monitor patient closely. cc: MAHOGANY Valenzuela MD David Francis, MD Matthew L. Figh, MD MTDD
--- NOTE | 2018-12-20 20:25 | Diag Imaging Result Doc PS360 ---
CHEST/ABD TUBE PLACEMENT - 12/20/2018 INDICATION: NG TUBE PLACEMENT COMPARISON: 11/07/2018 FINDINGS: There is a nasogastric tube in good position in the stomach. IMPRESSION: Nasogastric tube in good position in the stomach. Electronically signed by Archie Bermudez 12/20/2018 8:23 PM
[2018-12-20] MEDS: NS 1,000 ML IV SCH (20:49)
[2018-12-20] MEDS: PROTONIX IV SCH (20:49)
[2018-12-20] MEDS: SODIUM CHLORIDE 0.9% INJ SCH (20:50)
--- NOTE | 2018-12-20 21:44 | PROVIDER DOCUMENTATION ---
This chart was entered by Rosetta Nunez Scribe, acting as scribe for Sonny Kenny CRNP. HPI-Abdominal Pain/GI Problem - General Chief Complaint: Abdominal Pain Stated Complaint: abd pain Time Seen by Provider: 12/20/18 14:53 Source: patient, family, EMS Allergies/Adverse Reactions: Patient Allergies Allergy/AdvReac Type Severity Reaction Status Date / Time lorazepam [From Ativan] AdvReac Unknown Verified 11/07/18 17:14 Home Medications: Home Medication List Medication Instructions Recorded Confirmed Last Taken Type Dexlansoprazole [Dexilant] 60 mg PO BID 01/29/14 12/20/18 1 Day Ago History ~07/10/18 Levothyroxine [Synthroid] 25 microgm PO DAILY 01/29/14 12/20/18 1 Day Ago History ~07/10/18 Gabapentin 2 cap PO TID 12/02/16 12/20/18 1 Day Ago History ~07/10/18 Apixaban [Eliquis] 5 mg PO BID #60 tablet 12/07/16 12/20/18 1 Day Ago Rx ~07/10/18 Diltiazem HCl [Diltiazem ER] 120 mg PO DAILY 11/14/17 12/20/18 1 Day Ago History ~07/10/18 Potassium Chloride 10 meq PO DAILY 11/14/17 12/20/18 1 Day Ago History ~07/10/18 Amlodipine Besylate [Norvasc] 5 mg PO DAILY 11/07/18 12/20/18 Unknown History Azelastine 205.5 Mcg Nasal Spr 2 spray BUZZ BID 12/20/18 12/20/18 Unknown History [Astepro Nasal [place]] Cyproheptadine [Periactin] 1 tab PO DAILY 12/20/18 12/20/18 Unknown History Lactulose 30 ml PO BID 12/20/18 12/20/18 Unknown History - History of Present Illness-ABD Nature of Presenting Problems: Patient is an 78 yowf who complains of abdominal pain and distention. Hx of large right inguinal hernia "for years" and pt states this is where she is having. States she has had pain due to the hernia in the past and this episode began today. Pain associated with nausea. Hernia redicuble on exam and pt is non -toxic in appearance. Abdominal Pain Onset Location: reports: RLQ Pain Radiation: reports: no radiation Quality of Pain: reports: stabbing Severity in ED: reports: mild Onset/Duration: reports: gradual, this morning Timing: reports: still present Activities at Onset: reports: none Modifying Factors: improves with: nothing Associated Symptoms: reports: nausea Dark Stools Present?: reports: none noticed Rectal Bleeding: reports: none Bruising or Bleeding Gums?: No Similar Symptoms Previously?: Yes Recently seen or treated by another doctor?: No Review of Systems - Adult - REVIEW OF SYSTEMS - ADULT Constitutional: denies: chills, fever Eyes: reports: no symptoms reported Ears, Nose, Mouth & Throat: reports: no symptoms reported Cardiovascular: reports: no symptoms reported Respiratory: reports: no symptoms reported Gastrointestinal: reports: see HPI, abdominal pain, nausea. denies: constipation, diarrhea, difficulty swallowing, vomiting Genitourinary: reports: no symptoms reported Musculoskeletal: reports: no symptoms reported Integumentary: reports: no symptoms reported Neurological: reports: no symptoms reported Psychiatric: reports: no symptoms reported Endocrine: reports: no symptoms reported Hematologic/Lymphatic: reports: no symptoms reported Allergic/Immunologic: reports: no symptoms reported All Other Systems: Reviewed and Negative Past History - Adult - PAST MEDICAL HISTORY-ADULT Review of Records: reports: Old Records Reviewed, Nursing Assessment Review, Medications Reviewed, Social history reviewed & non-contributory. Major Childhood Illnesses: reports: denies history Cardiovascular: reports: cardiac disease, HTN, hyperlipidemia, NC Respiratory: reports: denies history Gastrointestinal: reports: obstruction, other (hernia) Obstetrical/Gynecological: reports: denies history Genitourinary: reports: denies history Musculoskeletal: reports: denies history Neurological: reports: CVA Psychiatric: reports: denies history Endocrine/Immune: reports: denies history Other Conditions: reports: deaf/hard of hearing - PRIOR SURGERIES/PROCEDURES Surgical/Procedure History: reports: cholecystectomy, hysterectomy, hernia repair, bowel surgery (obstruction), other (gall bladder) - PRIOR HOSPITALIZATIONS Prior Hospitalizations: reports: for similar symptoms - IMMUNIZATION STATUS Childhood Immunizations: UTD Flu Vaccine: NUTD - FAMILY HISTORY Family History: ulcers - SOCIAL HISTORY Smoking: denies Substance Use: denies Physical Exam-General - PHYSICAL EXAM-ADULT Initial Vital Signs Reviewed: Yes - CONSTITUTIONAL General Appearance: alert, moderate distress, obese. negative: lethargic, slow to respond - EYES Eyes: PERRL/EOMI, pale conjunctivae. negative: sclera injected, scleral icterus , sunken eyes - HEAD, EARS, NOSE, MOUTH & THROAT HENMT: normocephalic/atraumatic, moist mucous membranes - NECK Neck: non-tender, full range of motion, supple, normal inspection - RESPIRATORY Respiratory: chest non-tender, lungs clear, normal breath sounds, no pleuratic chest pain, no respiratory distress, no accessory muscle use - CARDIOVASCULAR Cardiovascular: normal peripheral pulses, regular rate, rhythm, no edema, no gallop, no JVD, no murmur - GASTROINTESTINAL (ABDOMEN) Abdominal Exam: abnormal bowel sounds (Bowel sounds hyperactive), distended, tenderness (rlq), hernia (Large- right inguinal, reducible) - LYMPHATIC Lymphatic: no adenopathy - MUSCULOSKELETAL Back Exam: normal inspection, no CVA tenderness, no vertebral tenderness Extremity: normal range of motion, non-tender, normal gait, normal inspection - SKIN Integumentary: normal color, warm/dry. negative: cyanosis, diaphoresis, jaundice, mottled, pallor - NEUROLOGIC Neurologic: grossly normal, no motor/sensory deficits - PSYCHIATRIC Psych/Mental Status: normal mood/affect, normal thought content, normal thought process, oriented x 3, anxious, tearful Progress - PLAN OF CARE/RESULTS Progress/Plan/Lab Results: Vital Signs - 8 hr 12/20/18 12:34 Temperature 97.6 F Pulse Rate 73 Respiratory Rate 18 Blood Pressure 168/92 O2 Sat by Pulse Oximetry 100 Orders Category Date Time Status AMYLASE [CHEM] Stat Lab 12/20/18 14:32 Uncollected CBC WITH DIFF [HEME] Stat Lab 12/20/18 14:32 Ordered COMPREHENSIVE METABOLIC PANEL [CHEM] Stat Lab 12/20/18 14:32 Uncollected LIPASE [CHEM] Stat Lab 12/20/18 14:32 Uncollected UA NIMS W/REFLEX CULT PL [URINALYSIS] Stat Lab 12/20/18 14:32 Uncollected 0.9% Sodium Chloride Inj [Ns] 500 ml Med 12/20/18 14:33 Active IV 100 mls/hr Morphine Med 12/20/18 14:34 Discontinued 2 mg IV NOW ONE Ondansetron [Zofran] Med 12/20/18 14:34 Discontinued 4 mg IV NOW ONE Discussed case with Dr. Gagnon who states to admit to [facility] and spoke with KAMRAN Carrasco who accepted admission and states she will enter orders. Will order NG tube. Discussed admission plan with pt who is in agreement. Result Diagrams: 12/20/18 15:12 12/20/18 15:12 - CT/MRI 1 CT Study: Abdomen (IMPRESSION: Partial recurrent small bowel obstruction involving both the ventral hernia and right inguinal hernia sacs. The obstructed bowel loops are actually slightly less dilated than prior. This exam was performed using automated exposure control, adjustment of mA or kV according to patient size, and/or use of iterative reconstruction technique Electronically signed by Archie Bermudez 12/20/2018 5:16 PM), other (pelvis) Impression: Normal - CONSULTS/PCP/HOSPITALIST Notification #1 *Consult/PCP/Hospitalist*: Dr. Gagnon Time Discussed: 17:30 Consult Disposition: Admit (to [facility]) #2 Consult: KAMRAN Carrasco Time Discussed: 15:34 Reason/Comments: states to insert NG tube and she will enter all other orders Consult Disposition: Admit Departure - Departure Date of Disposition Decision: 12/20/18 Time of Disposition Decision: 17:41 DIAGNOSIS: Bowel obstruction Qualifiers: Intestinal obstruction type: unspecified Intestinal obstruction extent: unspecified extent Qualified Code(s): K56.609 - Unspecified intestinal obstruction, unspecified as to partial versus complete obstruction Ventral hernia Qualifiers: Obstruction and gangrene presence: without obstruction or gangrene Qualified Code(s): K43.9 - Ventral hernia without obstruction or gangrene Abdominal pain Qualifiers: Abdominal location: unspecified location Qualified Code(s): R10.9 - Unspecified abdominal pain Disposition: ADMITTED INPATIENT 09 Certified Medical Emergency: Emergent Condition: Stable Referrals and Follow-Ups: Alexys Jin MD [Primary Care Provider] - - Critical Care Note This patient required my direct & personal management of CC.: No Attestation - Physician/ JOSE Attestation Patient care was provided by Advanced Practice Provider:: Yes Advanced Practice Provider:: Sonny Kenny Advanced Practice Provider documentation review:: The Mid-level provider documentation, treatment plan and medical decision making was reviewed by the physician who agrees with all treatment and medical decision making by the MLP. The physician spent face to face time with patient:: No Advanced Practice Provider documentation review:: Supervising physician onsite and consulted in the evaluation and care of this patient. The physician did not have a face to face encounter with the patient. This chart was documented by the indicated scribe, (Rosetta Nunez, Thong) and accurately reflects the services I performed and decisions made by , Sonny Kenny CRNP, as attested by the provider's signature.
[2018-12-21] MEDS: NS 1,000 ML IV SCH ×4 (05:14→23:44)
[2018-12-21] MEDS: MORPHINE IV PRN ×4 (05:18→23:41)
--- NOTE | 2018-12-21 05:34 | GENERAL SURGERY CONSULTATION ---
DATE: 12/21/2018 REQUESTING PHYSICIAN: Hospitalist service. REASON FOR CONSULTATION: Consult is concerning bowel obstruction. HPI: An 78-year-old female, well known to my service and my group, who has been having frequent small-bowel obstructions since her hernia repair in 1995. At that point, she had a huge piece of mesh placed in her abdomen. It has essentially made her nonsurgical candidate for any subsequent repairs. This episode, she started having abdominal pain on 6 a.m. on the morning of presentation, and some dry heaves and nausea. She did have a large bowel movement. She was seen in the emergency department after having this cramping abdominal pain. Had a CT scan that showed a bowel obstruction, although it is not as bad as it previously had been. I was asked to weigh in an opinion. She is currently having some discomfort, but she does not want to have any surgery. PAST MEDICAL HISTORY: 1. Recurrent small bowel obstruction. 2. Hypertension. 3. Hypothyroidism. 4. Gastroesophageal reflux disease. 5. Diabetes mellitus. 6. Proximal atrial fibrillation. 7. History of CVA. PAST SURGICAL HISTORY: 1. Multiple abdominal surgery repairs. 2. Hysterectomy. 3. Cholecystectomy. 4. Appendectomy. 5. Bilateral knees surgery. SOCIAL HISTORY: Denies alcohol, tobacco, or illicit drugs. FAMILY HISTORY: Reviewed with patient, but noncontributory. ALLERGIES: None. HOME MEDICATIONS: Of note, she is on Eliquis. REVIEW OF SYSTEMS: A full 10-point review of systems obtained and negative as specified in HPI. PHYSICAL EXAMINATION: Vital Signs: Patient is currently afebrile. Her vital signs are stable. General: No acute distress, but appears slightly uncomfortable. female looks stated age. HEENT: Normocephalic, atraumatic. Pupils equal, round, and reactive to light. Mucous membranes moist. Oropharynx benign. Neck: Supple. Trachea midline. Cardiovascular: Regular rate and rhythm. Lungs: Grossly clear. Abdomen: Soft. Large ventral hernia. Really no peritoneal signs at this time. Extremities: Moves all extremities. Neurologic: Grossly intact. Skin: No signs of jaundice. Vascular: All extremities perfused. LABORATORY: White blood cell count is 9, hematocrit 40, platelet count 238,000. Remainder of labs reviewed. CT scan independently reviewed, and radiology report reviewed and noted above. ASSESSMENT AND PLAN: An 78-year-old female with recurrent partial small bowel obstruction. 1. Recurrent partial small bowel obstruction. At this time, she essentially a nonoperative candidate. I do not think we can do anything surgically. At this point, I agree with NG tube decompression and conservative nonoperative management. We will see how she does. 2. Multiple medical comorbidities currently being managed by the hospitalist service. cc: Wayne Gagnon MD
--- NOTE | 2018-12-21 06:35 | Diag Imaging Result Doc PS360 ---
CHEST/ABD TUBE PLACEMENT - 12/21/2018 INDICATION: VERIFY NG TUBE PLACEMENT COMPARISON: 12/20/2018 FINDINGS: There is a stable nasogastric tube in good position in the stomach. IMPRESSION: Nasogastric tube in good position in the stomach. Electronically signed by Archie Bermudez 12/21/2018 6:32 AM
[2018-12-21 07:00] LABS: BASO# 0.01 X1000 (0.0-0.2); BASO% 0.1 % (0.0-0.8); EOS% 1.3 % (0.0-10.0); HEMOGLOBIN 11.4 g/dL (12.0-16.0); LYMPH# 1.28 X1000 (1.2-3.4); LYMPH% 16.9 % (20.5-51.1); MCHC 30.8 g/dL (33-37); MCV 84.5 FL (81-99); MONO# 0.64 X1000 (0.11-0.59); MONO% 8.5 % (1.7-9.3); MPV 10.3 FL (7.4-10.4); NEUT# 5.54 X1000 (1.4-6.5); NEUT% 73.2 % (42.2-75.2); PLT 215 X1000 (130-400); RBC 4.38 XMIL (4.2-5.4); WBC 7.57 X1000 (4.8-10.8)
[2018-12-21 07:06] LABS: INR 1.04; PROTIME 14.4 Seconds (11.0-16.0)
[2018-12-21 07:28] LABS: AGAP 10; ALB/GLOB RATIO 1.3; ALBUMIN 3.5 g/dL (3.5-5.0); ALKALINE PHOSPHATASE 73 U/L (32-104); BUN 14 mg/dL (8-22); CALCIUM 8.5 mg/dL (8.8-10.2); CHLORIDE 104 mmol/L (98-107); COSMO 282; CREATININE 0.7 mg/dL (0.5-0.9); ESTIMATED GFR > 60; GLUCOSE 96 mg/dL (70-104); GOT 15 U/L (10-30); GPT 10 U/L (10-36); MAGNESIUM 2.2 mg/dL (1.5-2.7); POTASSIUM 3.9 mmol/L (3.5-5.1); SODIUM 141 mmol/L (136-145); TCO2 27 mmol/L (25-35); TOTAL BILIRUBIN 0.46 mg/dL (0.20-1.00); TOTAL PROTEIN 6.3 g/dL (6.3-8.3)
[2018-12-21] MEDS: HUMULIN R SUBQ SCH ×5 (07:38→22:47)
[2018-12-21] MEDS: PROTONIX IV SCH ×2 (07:42→18:03)
[2018-12-21] MEDS: SYNTHROID IV SCH (07:49)
--- NOTE | 2018-12-21 12:20 | PROGRESS NOTE ---
DATE: 12/21/2018 SUBJECTIVE: Patient reports feeling fine. She is passing gases, but she has not had any bowel movement yet. OBJECTIVE: Vital Signs: Temperature 97.9 degrees, heart rate 77, respiratory rate 19, blood pressure 112/82, O2 saturation 97% on room air. General: This is an 78-year-old female lying in bed, in no acute distress. HEENT: Head is normocephalic, atraumatic. Mucous membranes dry. Neck: No JVD noted. No carotid bruits. No lymphadenopathy. No thyromegaly. Cardiovascular: S1, S2 heard. No murmurs, gallops, or rubs. Regular rate and rhythm. Respiratory: Clear bilaterally to auscultation. No work of breathing. No using accessory muscles. Abdomen: Soft, a little bit distended. Bowel sounds present but hypoactive. No signs of peritoneal irritation. Extremities: No clubbing, cyanosis, or edema. Peripheral pulses present in both legs. Neurological: Patient alert and oriented x3. Moves 4 extremities. LABORATORY DATA: CBC and BMP reviewed, both are within normal limits. ASSESSMENT AND PLAN: 1. Partial recurrent small bowel obstruction involving ventral hernia and right inguinal hernia. The patient has been evaluated by Dr. Gagnon from General Surgery. The patient is a nonsurgical candidate. He has been recommended conservative treatment only. We will continue with nasogastric tube and intravenous fluids. The patient clinically is feeling less nauseated. We will continue with the same management. 2. Hypertension. Blood pressure is now under control. We are holding of course all p.o. medications by now. 3. Hypothyroidism. Patient receiving intravenous Synthroid. Will continue with the same management. 4. Gastroesophageal reflux disease. We will continue with intravenous Protonix. She is not complaining of any abdominal pain or any heartburn. 5. Diabetes mellitus type 2. We will continue. Blood sugar is being check before meals and also at bedtime, on insulin sliding scale as well. 6. Disposition. We will continue to monitor this patient closely. As we mentioned before, she is not a candidate for any type of surgery. cc: Jean Paul Mcgregor MD
[2018-12-21] MEDS: SODIUM CHLORIDE 0.9% INJ SCH (18:03)
[2018-12-22] MEDS: MORPHINE IV PRN ×4 (03:22→21:48)
[2018-12-22] MEDS: NS 1,000 ML IV SCH ×3 (03:22→18:26)
[2018-12-22] MEDS: HUMULIN R SUBQ SCH ×4 (06:30→22:24)
[2018-12-22] MEDS: PROTONIX IV SCH ×2 (06:38→18:26)
[2018-12-22] MEDS: SYNTHROID IV SCH (06:39)
--- NOTE | 2018-12-22 07:22 | GENERAL SURGERY PROGRESS NOTE ---
DATE: 12/22/2018 SUBJECTIVE: The patient seems to be doing okay. She feels like her stomach is less distended. She is not nauseated. She does have a reported bowel movement. Her NG tube is not draining much. OBJECTIVE: Vital Signs: The patient is currently afebrile. Her vital signs are stable. General: No acute distress. HEENT: Normocephalic, atraumatic. Pupils equal, round, reactive to light. Mucous membranes moist. Oropharynx benign. Neck: Supple. Trachea midline. Cardiovascular: Regular rate and rhythm. Lungs: Grossly clear. Abdomen: Soft, less distended, nontender. Some bowel sounds auscultated. Extremities: Moves all extremities. Neurologic: Grossly intact. Skin: No signs of jaundice. Vascular: All extremities perfused. LABORATORY DATA: None this morning as of yet. ASSESSMENT AND PLAN: An 78-year-old female with recurrent partial small bowel obstruction. 1. Recurrent partial small bowel obstruction. At this time, I think she is already making some improvement. We will clamp her nasogastric tube and give her sips of clears. We will see how she does. No major surgical intervention planned at this time. We will continue to follow while she is in the hospital. My partner will follow her over the weekend. 2. Multiple medical comorbidities, currently being managed by the hospitalist service. cc: Wayne Gagnon MD
[2018-12-22] MEDS: HALDOL IV PRN ×3 (12:26→21:48)
--- NOTE | 2018-12-22 15:13 | PROGRESS NOTE ---
DATE: 12/22/2018 SUBJECTIVE: The patient reports hurting from the left nostril where the NG tube was placed. No other complaints noted. No abdominal pain. No diarrhea. She reports passing gas. OBJECTIVE: Vital Signs: Temperature 98.1 degrees, heart rate 74, respiratory rate 18, blood pressure 155/82, O2 saturation 98% on room air. General examination: This is an 78-year-old female, lying in bed in no acute distress. HEENT: Head is normocephalic, atraumatic. NG tube in place, clamped. Neck: No JVD noted. No carotid bruits. No lymphadenopathy. No thyromegaly. Cardiovascular exam: S1, S2 heard. No murmurs, gallops or rubs. Regular rate and rhythm. Respiratory exam: Clear bilaterally to auscultation. No work of breathing or using accessory muscles. Abdomen: Soft. A little bit distended, but nontender to palpation. Bowel sounds present, but hypoactive. No signs of peritoneal irritation. Extremities: No clubbing, cyanosis, or edema. Peripheral pulses present in both legs. Neurological exam: The patient is alert and oriented x3. Moves 4 extremities. ASSESSMENT AND PLAN: 1. Partial recurrent small bowel obstruction involving ventral hernia and right inguinal hernia. Clinically, this patient is getting better. According to Dr. Gagnon from General Surgery, she is a nonsurgical candidate, but globally she is doing good. At this time, they have decided to clamp the NG tube and see how she does. She also is on sips of water. If she does tolerate those, we can start a clear liquid diet, and we will go from there. 2. Hypertension. Blood pressure is under control. We will continue with the same management. 3. Hypothyroidism. The patient continues to receive intravenous Synthroid. 4. Gastroesophageal reflux disease. We will continue with Protonix. 5. Diabetes mellitus type 2. The patient is on Accu-Chek before meals and also at bedtime. 6. Disposition: At this point, we will continue following the lead from General Surgery. cc: Jean Paul Mcgregor MD
[2018-12-23] MEDS: NS 1,000 ML IV SCH ×3 (02:59→18:02)
[2018-12-23] MEDS: MORPHINE IV PRN (03:45)
[2018-12-23] MEDS: PROTONIX IV SCH ×2 (06:23→18:01)
[2018-12-23] MEDS: SYNTHROID IV SCH (06:23)
[2018-12-23] MEDS: SODIUM CHLORIDE 0.9% INJ SCH (06:23)
[2018-12-23] MEDS: HUMULIN R SUBQ SCH ×4 (06:30→21:06)
[2018-12-23] MEDS: DEMEROL IV PRN ×2 (10:18→18:15)
[2018-12-23] MEDS: HALDOL IV PRN ×2 (10:18→18:15)
--- NOTE | 2018-12-23 11:57 | PROGRESS NOTE ---
DATE: 12/23/2018 SUBJECTIVE: Patient is very hard of hearing. Reports still having some discomfort from the left nostril where the NG tube is placed. No acute issues noted as per nursing staff overnight. OBJECTIVE: Vital Signs: Temperature 98.1 degrees, heart rate 82, respiratory rate 20, blood pressure 157/75, O2 saturation 98% on room air. General Examination: This is a chronically ill- looking, 78-year-old female, lying in bed in no acute distress. Cardiovascular exam: S1, S2 heard. No murmurs, gallops, or rubs. Regular rate and rhythm. HEENT: Head is normocephalic, atraumatic with the NG tube in place. Respiratory exam: Clear bilaterally to auscultation. No work of breathing or using accessory muscles. Abdomen: Soft, a little bit distended, but nontender to palpation. Bowel sounds present, but hypoactive. No signs of peritoneal irritation. Extremities: No clubbing, cyanosis, or edema. Peripheral pulses present in both legs. Neurological exam: Patient alert and oriented x3. Moves 4 extremities. Patient maybe hard of hearing. LABORATORY DATA: None. ASSESSMENT AND PLAN: 1. Partial recurrent small bowel obstruction involving ventral hernia and right inguinal hernia. Clinically, this patient continues to improve, although he reports local pain in the left nostril. What I am going to do is to order an x-ray of the abdomen and, if it shows improvement, we will take that nasogastric tube out. Initial evaluation from General Surgery concluded she is not a surgical candidate. In any case, we will continue to monitor this patient closely. 2. Hypertension. Blood pressure is under control. We will continue with the same management. 3. Hypothyroidism. Patient is on Synthroid intravenously while she is not able to take anything by mouth. 4. Gastroesophageal reflux disease. We will continue with intravenous Protonix. 5. Diabetes mellitus type 2. Patient is on Accu-Chek before meals and also at bedtime, and insulin sliding scale as well. 6. Disposition: We will follow the lead from General Surgery. We will see if this small bowel obstruction is getting better or not. cc: Jean Paul Mcgregor MD
--- NOTE | 2018-12-23 14:51 | Diag Imaging Result Doc PS360 ---
EXAM: ABDOMEN FLAT/UPRIGHT 12/23/2018 HISTORY: sbo TECHNIQUE: Flat and upright abdomen COMMENT: There is gas and stool in the colon including the rectosigmoid colon. There is an NG tube in the stomach. The stomach and small bowel are not distended. The gaseous dilatation of the small bowel which was present on 11/09/2018 is no longer present. IMPRESSION: Constipation. Electronically signed by Kiran Jeter 12/23/2018 2:49 PM
--- NOTE | 2018-12-24 01:32 | GENERAL SURGERY PROGRESS NOTE ---
DATE: 12/23/2018 SUBJECTIVE: Nothing in the way of [*] She had NG tube in place with persisting gastric output. No fevers. No tachycardia. OBJECTIVE: Blood pressure 157/75, oxygen saturation is 98% on room air. General: She is alert. Cardiovascular: Normal rate. Abdomen: Soft. Stable hernia with no peritonitis. No distention. LABORATORY DATA: Glucose is 84. ASSESSMENT/PLAN: An 78-year-old female with recurrent, chronic bowel obstructions related to a large loss of domain hernia. We will continue nonoperative management. She is very high risk and is not really a surgical candidate. She resolves these relatively quickly but does have short intervals in between. Would optimize electrolytes. Continue to follow along. cc: Rosa Demarco MD
[2018-12-24] MEDS: DEMEROL IV PRN ×3 (04:14→21:43)
[2018-12-24] MEDS: HUMULIN R SUBQ SCH ×3 (06:14→16:19)
[2018-12-24] MEDS: NS 1,000 ML IV SCH ×3 (06:35→21:30)
[2018-12-24] MEDS: PROTONIX IV SCH ×2 (06:35→17:24)
[2018-12-24] MEDS: SYNTHROID IV SCH (06:36)
[2018-12-24 07:27] LABS: BASO# 0.02 X1000 (0.0-0.2); BASO% 0.3 % (0.0-0.8); EOS# 0.09 X1000 (0.0-0.7); EOS% 1.3 % (0.0-10.0); HEMATOCRIT 43.1 % (37.0-47.0); HEMOGLOBIN 13.2 g/dL (12.0-16.0); IMM GRAN# 0.02 X1000 (0.0-0.04); IMM GRAN% 0.3 % (0.0-0.5); LYMPH# 1.04 X1000 (1.2-3.4); MCHC 30.6 g/dL (33-37); MONO# 0.68 X1000 (0.11-0.59); MONO% 9.8 % (1.7-9.3); MPV 10.5 FL (7.4-10.4); NEUT# 5.09 X1000 (1.4-6.5); NEUT% 73.3 % (42.2-75.2); PLT 215 X1000 (130-400); RBC 5.07 XMIL (4.2-5.4); RDW 15.2 % (11.5-14.5); WBC 6.94 X1000 (4.8-10.8)
[2018-12-24 07:52] LABS: AGAP 18; BUN 10 mg/dL (8-22); CALCIUM 8.7 mg/dL (8.8-10.2); CHLORIDE 103 mmol/L (98-107); COSMO 279; CREATININE 0.6 mg/dL (0.5-0.9); ESTIMATED GFR > 60; GLUCOSE 101 mg/dL (70-104); POTASSIUM 3.4 mmol/L (3.5-5.1); SODIUM 140 mmol/L (136-145); TCO2 19 mmol/L (25-35)
--- NOTE | 2018-12-24 12:36 | PROGRESS NOTE ---
DATE: 12/24/2018 SUBJECTIVE: Patient reports feeling fine. Very hard of hearing. Some discomfort in the nostril because of the NG tube. No other complaints noted. OBJECTIVE: Vital Signs: Temperature 97.4 degrees, heart rate 66, respiratory rate 18, blood pressure 121/67, O2 saturation 98% on room air. General examination: This is a chronically ill- looking and obese, 78-year-old female lying in bed, in no acute distress. Cardiovascular: S1, S2 heard. No murmurs, gallops, or rubs. Regular rate and rhythm. Respiratory: Clear bilaterally to auscultation. No work of breathing or using accessory muscles. Abdomen: Soft. A little bit distended but there are bowel sounds present. No signs of peritoneal irritation. Extremities: No clubbing, cyanosis, or edema. Peripheral pulses present in both legs. Neurological: Patient is alert and oriented x3. Moves 4 extremities. The patient is very hard of hearing. LABORATORY DATA: Reviewed. ASSESSMENT AND PLAN: 1. Partial recurrent small bowel obstruction involving ventral hernia and right inguinal hernia. Clinically, this patient is good. The x-ray from today did not show any obstruction or air. At this point, according to General Surgery, we will remove NG tube and start a liquid diet and see how she does. 2. Hypertension. Blood pressure is under control. We will continue with the same medications. 3. Hypothyroidism. Patient is on Synthroid IV that we are going to change to p.o. because patient is able to take medications orally. 4. Gastroesophageal reflux disease. We will continue with Protonix. That is being given q.12 hours. 5. Diabetes mellitus type 2. We will continue with Accu-Chek before meals and also at bedtime and sliding scale insulin as well. 6. Disposition. Following the lead from General Surgery. cc: Jean Paul Mcgregor MD
[2018-12-24] MEDS ORDERED: NEURONTIN PO SCH (13:00)
[2018-12-24] MEDS: SYNTHROID PO SCH (13:54)
--- NOTE | 2018-12-24 14:29 | GENERAL SURGERY PROGRESS NOTE ---
DATE: 12/24/2018 SUBJECTIVE: She is feeling a little bit better. She is sitting in the chair. She is having a little bit in the way of bowel function. Minimal NG tube output. No fevers. OBJECTIVE: Vital signs: Pulse 67, blood pressure 121/67. General: She is alert, sitting up in the chair. Cardiovascular: Normal rate. Abdomen: Soft, nontender, nondistended. Integument: Warm, dry. Output: NG tube output is minimal. ASSESSMENT AND PLAN: An 78-year-old female with chronic recurrent bowel obstructions. This is resolved and we will remove her NG tube and gradually begin advancing her diet. cc: Rosa Demarco MD
[2018-12-24] MEDS: SODIUM CHLORIDE 0.9% INJ SCH (17:24)
[2018-12-24] MEDS: HALDOL IV PRN (18:56)
[2018-12-24] MEDS: ELIQUIS PO SCH (21:42)
[2018-12-24] MEDS: ASTEPRO NASAL SPRAY NAS SCH (21:42)
[2018-12-24] MEDS: LACTULOSE PO SCH (21:42)
[2018-12-25] MEDS: HUMULIN R SUBQ SCH ×4 (00:58→16:32)
[2018-12-25] MEDS ORDERED: HALDOL IM ONE (01:06)
[2018-12-25] MEDS: PROTONIX IV SCH (06:17)
--- NOTE | 2018-12-25 06:21 | GENERAL SURGERY PROGRESS NOTE ---
DATE: 12/25/2018 SUBJECTIVE: The patient seems to be doing okay, although she is stating that she is feeling a little bit cold. She is tolerating her clear liquid diet and having bowel movements. OBJECTIVE: Vital Signs: The patient is currently afebrile. Her vital signs are stable. General Examination: No acute distress. HEENT: Normocephalic, atraumatic. Pupils equal, round, reactive to light. Mucous membranes moist. Oropharynx benign. Neck: Supple. Trachea midline. Cardiovascular: Regular rate and rhythm. Lungs: Grossly clear. Abdomen: Soft, nontender, nondistended. Extremities: Moves all extremities. Neurologic: Grossly intact. Skin: No signs of jaundice. Vascular: All extremities perfused. Laboratory: None this morning as of yet. ASSESSMENT AND PLAN: An 78-year-old female with recurrent partial small bowel obstruction. Recurrent partial small bowel obstruction. At this time, we will advance her to a full liquid diet. She seems to be improving. From a surgical point of view, continue nonoperative management. We will monitor her closely. cc: Wayne Gagnon MD
[2018-12-25] MEDS: SYNTHROID PO SCH (06:51)
[2018-12-25 07:55] LABS: BASO# 0.01 X1000 (0.0-0.2); BASO% 0.1 % (0.0-0.8); EOS# 0.03 X1000 (0.0-0.7); EOS% 0.4 % (0.0-10.0); HEMATOCRIT 38.4 % (37.0-47.0); HEMOGLOBIN 12.3 g/dL (12.0-16.0); LYMPH# 1.29 X1000 (1.2-3.4); MCH 26.3 PG (27-31); MCV 82.1 FL (81-99); MONO# 0.76 X1000 (0.11-0.59); MONO% 10.6 % (1.7-9.3); MPV 10.5 FL (7.4-10.4); NEUT# 5.08 X1000 (1.4-6.5); NEUT% 70.9 % (42.2-75.2); PLT 236 X1000 (130-400); RBC 4.68 XMIL (4.2-5.4); RDW 15.4 % (11.5-14.5); WBC 7.17 X1000 (4.8-10.8)
--- NOTE | 2018-12-25 08:00 | EKG Report ---
Test Performed on : 12/22/2018 10:53:30 PM Test Reason : irregular heartbeat Blood Pressure : / mmHG Vent. Rate : 110 BPM Atrial Rate : 077 BPM P-R Int : 000 ms QRS Dur : 088 ms QT Int : 370 ms P-R-T Axes : 000 -17 022 degrees QTc Int : 500 ms Atrial fibrillation. with rapid ventricular response. Inferior infarct (cited on or before 06-SEP-2014) Abnormal ECG When compared with ECG of 22-DEC-2018 22:53, (Unconfirmed) Previous ECG has undetermined rhythm, needs review Confirmed by Taylor BUTTS, Faizan Alamo ([id number]) on 12/25/2018 3:54:37 PM
[2018-12-25 08:24] LABS: AGAP 17; BUN 19 mg/dL (8-22); CALCIUM 9.1 mg/dL (8.8-10.2); CHLORIDE 105 mmol/L (98-107); COSMO 284; CREATININE 0.8 mg/dL (0.5-0.9); ESTIMATED GFR > 60; GLUCOSE 103 mg/dL (70-104); POTASSIUM 3.4 mmol/L (3.5-5.1); SODIUM 141 mmol/L (136-145); TCO2 19 mmol/L (25-35)
[2018-12-25] MEDS ORDERED: KLOR-CON PO SCH (09:00)
[2018-12-25] MEDS ORDERED: NORVASC PO SCH (09:00)
[2018-12-25] MEDS ORDERED: CARDIZEM CD PO SCH (09:00)
[2018-12-25] MEDS ORDERED: PERIACTIN PO SCH (09:00)
[2018-12-25] MEDS: ELIQUIS PO SCH (09:05)
[2018-12-25] MEDS: LACTULOSE PO SCH (09:06)
[2018-12-25] MEDS ORDERED: KLOR-CON PO ONE (10:18)
[2018-12-25 14:59] VITALS: BP 110/53
[2018-12-25] MEDS: ASTEPRO NASAL SPRAY NAS SCH (16:32)
--- NOTE | 2018-12-26 04:55 | DISCHARGE SUMMARY ---
ADMISSION DATE: 12/20/2018 DISCHARGE DATE: 12/25/2018 PRIMARY CARE PROVIDER: Dr. Alexys Jin. PERTINENT PROCEDURES: Abdomen and pelvis CT: Partial recurrent small bowel obstruction, involving both the ventral hernia and the right inguinal hernia sacs. The obstructed bowel loops are actually slightly less dilated than prior. DISCHARGE DIAGNOSES: 1. Recurrent partial small bowel obstruction. The patient initially required an NG tube. She was placed NPO. She had improvement in her imaging. She was evaluated by General Surgery. She was continued on nonoperative management. Her NG tube was taken out. Her diet was advanced to a full liquid diet that she continues to tolerate, and she will be discharged home today, with self-care. 2. Hypertension. Blood pressure controlled. Continue home medicines. 3. Hypothyroidism. Continue Synthroid. 4. Gastroesophageal reflux disease. Continue proton pump inhibitor. 5. Diabetes mellitus type 2. Continue home regimen. HOSPITAL COURSE: Briefly, Ms. Jerry is an 78-year-old female with a past medical history of frequent bowel obstructions since 1995 after a hernia repair. She is a nonsurgical candidate for any hernia repairs. She started having abdominal pain and swelling that started on the day of her admission, and is associated with dry heaves and nausea. She did go ahead and have breakfast, with eggs and toast. She had a large soft bowel movement, and then started having chills. Assessment revealed a right lower quadrant significant bulge that was tight with palpation, tender in all [address] imaging of the abdomen and pelvis revealed partial small bowel obstruction that involved the ventral hernia and the right inguinal hernia. Dr. Gagnon with General Surgery was consulted. The patient was admitted to the medical floor, made NPO, placed an NG tube for bowel rest, and was initiated on IV fluids. She has had a stable hospital course. She has shown improvement. Her NG tube was removed. She was initiated on a clear liquid diet and advanced to a full liquid diet, which she is now tolerating. She continues to be a nonoperative surgical candidate, and will be discharged back home today. VITAL SIGNS: Temperature is 98 degrees, heart rate 101, respirations 16, blood pressure 147/88, O2 is 95% on room air. DISCHARGE DIET: GI soft. DISCHARGE MEDICATIONS: 1. Norvasc 5 mg p.o. daily. 2. Astepro nasal spray, 2 sprays nasally b.i.d. 3. Periactin 4 mg tablet p.o. daily. 4. Gabapentin 300 mg capsules 2 caps p.o. t.i.d. 5. Lactulose 30 mL p.o. b.i.d. 6. Synthroid 25 mcg p.o. daily. 7. Potassium 40 mEq p.o. daily. 8. Eliquis 5 mg p.o. b.i.d. 9. Dexilant 60 mg p.o. b.i.d. 10. Diltiazem 120 mg p.o. daily. FOLLOWUP: Ms. Jerry is being discharged home. She is to follow up with her primary care provider, Dr. Alexys Jin, in 1 week. She can return to the ED or call 911 for any worsening of symptoms. Dictated by MAHOGANY Roman for Jean Paul Mcgregor MD cc: MD Alexys Andrea MD
== END 2018-12-25 17:27 | disposition home or self-care (01) | DRG 394 ==
LOC: SUPCPDRO → ED 12:32 → SURHOLD 18:24 → 3N 22:42
PROVIDERS: ATTEND Internal Medicine
CPT/HCPCS: 74000; 74018; 74019; 74020; 74177; 80048; 80053; 81001; 82150; 82948; 83605; 83690; 83735; 85025; 85610; 85730; 87040; 93005; 93010; 94760; 94761; 94799; 96361; 96374; 96375; 97162; 97530; 99285; A9270; C9113; J1170; J1630; J2175; J2270; J2405; J7030; J7040; Q9967; S0164; XXXXX

== ENCOUNTER 2019-05-24 20:39 | Inpatient (IN) ==
[2019-05-24] MEDS ORDERED: ZOFRAN IV ONE (21:06)
[2019-05-24] MEDS ORDERED: MORPHINE IV ONE ×2 (21:06→23:23)
[2019-05-24 21:14] LABS: URINE SOURCE CLEAN CATCH
[2019-05-24 21:22] LABS: BILIRUBIN URINE NEGATIVE (NEGATIVE); BLOOD URINE NEGATIVE (NEGATIVE); COLOR YELLOW; GLUCOSE URINE NEGATIVE (NEGATIVE); KETONE URINE NEGATIVE (NEGATIVE); LEUKOCYTES URINE NEGATIVE (NEGATIVE); NITRITE URINE NEGATIVE (NEGATIVE); PROTEIN URINE NEGATIVE (NEGATIVE); SP GRAVITY URINE 1.011; TURBIDITY URINE CLEAR (CLEAR); UR EPITHELIAL CELLS <10 /HPF (<10); URINE BACTERIA NEGATIVE /HPF; URINE RBC <10 /HPF (<10); URINE WBC <10 /HPF (<10); UROBILINOGEN URINE NORMAL (NORMAL)
[2019-05-24 21:32] LABS: BASO# 0.04 X1000 (0.0-0.2); BASO% 0.5 % (0.0-0.8); EOS# 0.18 X1000 (0.0-0.7); EOS% 2.3 % (0.0-10.0); HEMATOCRIT 33.8 % (37.0-47.0); HEMOGLOBIN 10.3 g/dL (12.0-16.0); IMM GRAN# 0.03 X1000 (0.0-0.04); IMM GRAN% 0.4 % (0.0-0.5); LYMPH# 1.83 X1000 (1.2-3.4); LYMPH% 23.3 % (20.5-51.1); MCH 22.1 PG (27-31); MCHC 30.5 g/dL (33-37); MCV 72.5 FL (81-99); MONO# 0.71 X1000 (0.11-0.59); MPV 10.4 FL (7.4-10.4); NEUT# 5.06 X1000 (1.4-6.5); NEUT% 64.5 % (42.2-75.2); PLT 238 X1000 (130-400); RBC 4.66 XMIL (4.2-5.4); RDW 19.1 % (11.5-14.5); WBC 7.85 X1000 (4.8-10.8)
[2019-05-24 21:39] LABS: ALB/GLOB RATIO 1.5; ALBUMIN 4.1 g/dL (3.5-5.0); CALCIUM 9.5 mg/dL (8.8-10.2); CREATININE 1.1 mg/dL (0.5-0.9); POTASSIUM 4.2 mmol/L (3.5-5.1); TOTAL BILIRUBIN 0.37 mg/dL (0.20-1.00); TOTAL PROTEIN 6.8 g/dL (6.3-8.3)
[2019-05-24] MEDS ORDERED: NS 1,000 ML IV SCH (23:15)
--- NOTE | 2019-05-25 01:06 | HISTORY AND PHYSICAL ---
PRIMARY CARE PHYSICIAN: Dr. Jin. CHIEF COMPLAINT: Small bowel obstruction. HISTORY OF PRESENTING ILLNESS: This is an 78-year-old elderly female with a history of recurrent small bowel obstruction, inoperable ventral hernia, hypertension, atrial fibrillation and hypothyroidism, who had presented emergency department with complaint of worsening abdominal pain over the past day or so. She states that she was nauseated and did not feel well. She was evaluated the emergency department. She had imaging done which did show a small bowel obstruction. Due to her presenting symptoms, she will require admission for further management. Her case was also discussed with General Surgery who stated that will see the patient in the morning. At the time of my examination, patient denied any headache, fever, chills, chest pain, shortness of breath or any weight changes, but complained of abdominal pain. PAST MEDICAL HISTORY: Recurrent small bowel obstruction, inoperable ventral hernia, hypertension, CVA, atrial fibrillation, diabetes mellitus type 2, hypothyroidism. PAST SURGICAL HISTORY: Multiple abdominal surgeries with mesh, hysterectomy, cholecystectomy, appendectomy, bilateral knee surgery. ALLERGIES: Ativan. CURRENT MEDICATIONS: Include Norvasc 5 mg p.o. daily, Eliquis 5 mg p.o. b.i.d., Dexilant 60 mg p.o. b.i.d., diltiazem 120 mg p.o. daily, gabapentin 300 mg 2 tablets p.o. t.i.d., levothyroxine 25 mcg p.o. daily. SOCIAL HISTORY: No history of smoking, alcohol or illicit drug use. She states her children live with her. FAMILY HISTORY: No history of coronary disease. REVIEW OF SYSTEMS: Fourteen point review of systems as listed in HPI. Other systems negative. PHYSICAL EXAMINATION: GENERAL: Cooperative, friendly female. She is resting more comfortably now. VITAL SIGNS: Temperature 98.8 degrees, pulse 81, respiration 26, blood pressure 176/97. HEENT: Atraumatic, normocephalic. Extraocular movements intact. PERRLA. The patient is hard of hearing. NECK: No masses. CHEST: Clear to auscultation. CARDIOVASCULAR: Regular rate and rhythm. ABDOMEN: Soft. Diffuse tenderness. EXTREMITIES: Trace edema. NEUROLOGIC: She is awake, alert, oriented x3. GENITOURINARY: No bladder distention. SKIN: Warm. LABORATORIES AND STUDIES: WBC 7.85, hemoglobin 10.3, hematocrit 33.8, platelets 238,000. Sodium 140, potassium 4.2, chloride 101, CO2 is 26, BUN is 20, creatinine is 1.1, glucose is 116. ASSESSMENT: An 78-year-old elderly female with a history of recurrent small-bowel obstruction, inoperable ventral hernia, hypertension, atrial fibrillation, who presented to emergency department with a 1-day history of worsening abdominal pain. She was evaluated in the emergency department. She had imaging done which did show small bowel obstruction. Her case was discussed with General Surgery who recommended admission for further evaluation and management. 1. Recurrent small-bowel obstruction. 2. Hypertension. 3. Atrial fibrillation. 4. Hypothyroidism. PLAN: 1. We will admit patient to medical floor with telemetry. 2. Keep patient NPO and put NG to low intermittent suction. 3. We will consult General Surgery. 4. Monitor blood pressure closely. Resume antihypertensive agents. 5. Restart other home medications. 6. Continue to monitor patient on telemetry. 7. The patient is on Eliquis and this will suffice for DVT prophylaxis. 8. We will continue to follow, and reassess and make further recommendation based on patient's clinical course. cc: Hector Carreon MD
[2019-05-25] MEDS: ZOFRAN IV PRN ×6 (03:20→23:54)
[2019-05-25] MEDS: MORPHINE IV PRN ×5 (03:20→18:04)
[2019-05-25] MEDS: NS 1,000 ML IV SCH ×5 (03:31→21:14)
[2019-05-25 04:57] LABS: URINE SOURCE CLEAN CATCH
[2019-05-25 05:01] LABS: BILIRUBIN URINE NEGATIVE (NEGATIVE); BLOOD URINE TRACE (NEGATIVE); COLOR YELLOW; GLUCOSE URINE NEGATIVE (NEGATIVE); KETONE URINE NEGATIVE (NEGATIVE); LEUKOCYTES URINE NEGATIVE (NEGATIVE); NITRITE URINE NEGATIVE (NEGATIVE); PH URINE 6.5; PROTEIN URINE NEGATIVE (NEGATIVE); SP GRAVITY URINE 1.044; TURBIDITY URINE CLEAR (CLEAR); UROBILINOGEN URINE NORMAL (NORMAL)
[2019-05-25 05:02] LABS: UR EPITHELIAL CELLS <10 /HPF (<10); URINE BACTERIA NEGATIVE /HPF; URINE WBC <10 /HPF (<10)
--- NOTE | 2019-05-25 05:33 | GENERAL SURGERY CONSULTATION ---
DATE: 05/25/2019 REQUESTING PHYSICIAN: The hospitalist. REASON FOR CONSULTATION: Bowel obstruction. HISTORY OF PRESENT ILLNESS: An 78-year-old female, well known to my practice, who presents with recurrent small-bowel obstructions, inoperable ventral hernia, and is presenting now with abdominal pain. She has what appears to be a ventral hernia and small-bowel obstruction this admission. She is already feeling better since she had an NG tube placed. CT scan confirmed essentially stable ventral hernia. Otherwise, she seems to be doing okay. The pain has been over the past several days, but again, it has improved since she has been in the hospital. PAST MEDICAL HISTORY: Recurrent small-bowel obstructions and upper pole ventral hernia, hypertension, history of CVA, history of atrial fib, diabetes mellitus type 2, hypothyroidism. PAST SURGICAL HISTORY: Includes multiple abdominal surgeries and ventral hernia repairs, hysterectomy, cholecystectomy, appendectomy, bilateral knee surgery. ALLERGIES: Ativan. HOME MEDICATIONS: Reviewed. Of note, she is on Eliquis. SOCIAL HISTORY: No history of smoking. FAMILY HISTORY: Reviewed with patient, noncontributory. REVIEW OF SYSTEMS: A full 10-point review of systems obtained, negative except as specified in HPI. PHYSICAL EXAMINATION: Vital Signs: Patient is currently afebrile. Her vital signs are stable. General: No acute distress. HEENT: Normocephalic, atraumatic. Pupils equal, round, reactive to light. Mucous membranes moist. Oropharynx benign. Neck: Supple. Trachea midline. Cardiovascular: Regular rate and rhythm. Lungs: Grossly clear. Abdomen: Soft. No real peritoneal signs. Some mild discomfort. Extremities: Moves all extremities. Neurologic: Grossly intact. Skin: No signs of jaundice. Vascular: All extremities perfused. LABORATORY: White blood cell count is normal, hematocrit 33, platelet count 238,000. Remainder of labs reviewed. CT scan independently reviewed and radiology report reviewed. ASSESSMENT AND PLAN: An 78-year-old female with recurrent small-bowel obstructions. 1. Recurrent small-bowel obstruction. At this time, it is likely related to scar tissue in her mesh, but I think her abdomen is too hostile to do any surgical intervention. Agree with bowel rest and decompression. Hopefully, we can manage her like we have previously and just get her through this without any kind of surgical intervention. The patient is in agreement with this and wants to try to manage this nonoperatively. 2. Multiple medical comorbidities. Currently being managed by the hospitalist service. I appreciate the consult. cc: Wayne Gagnon MD
[2019-05-25 06:52] LABS: BASO# 0.02 X1000 (0.0-0.2); BASO% 0.2 % (0.0-0.8); EOS# 0.07 X1000 (0.0-0.7); EOS% 0.5 % (0.0-10.0); HEMATOCRIT 35.2 % (37.0-47.0); HEMOGLOBIN 10.7 g/dL (12.0-16.0); IMM GRAN# 0.03 X1000 (0.0-0.04); IMM GRAN% 0.2 % (0.0-0.5); LYMPH# 0.95 X1000 (1.2-3.4); LYMPH% 7.2 % (20.5-51.1); MCH 22.2 PG (27-31); MCHC 30.4 g/dL (33-37); MONO# 0.76 X1000 (0.11-0.59); MONO% 5.8 % (1.7-9.3); MPV 10.1 FL (7.4-10.4); NEUT# 11.32 X1000 (1.4-6.5); NEUT% 86.1 % (42.2-75.2); PLT 217 X1000 (130-400); RBC 4.82 XMIL (4.2-5.4); RDW 19.3 % (11.5-14.5); WBC 13.15 X1000 (4.8-10.8)
--- NOTE | 2019-05-25 06:56 | Diag Imaging Result Doc PS360 ---
EXAM: CHEST-PORTABLE 05/24/2019 HISTORY: ng placement TECHNIQUE: AP portable at 0008 COMMENT: There is an NG tube with its tip in the fundus of the stomach. There is cardiomegaly. IMPRESSION: NG tube in the stomach. Electronically signed by Kiran Jeter 05/25/2019 6:54 AM
[2019-05-25 07:06] LABS: CALCIUM 8.8 mg/dL (8.8-10.2); CREATININE 0.9 mg/dL (0.5-0.9); POTASSIUM 3.9 mmol/L (3.5-5.1)
--- NOTE | 2019-05-25 07:59 | Diag Imaging Result Doc PS360 ---
EXAM: CT ABD/PELVIS W/IV CONT ONLY 05/24/2019 HISTORY: abdominal pain, recurrent SBO TECHNIQUE: This exam was performed using automated exposure control, adjustment of mA or kV according to patient size, and/or use of iterative reconstruction technique. COMMENT: There is apparent focal fibrotic change in the posterior costophrenic sulcus of the left lower lobe which has not changed since 12/20/2018. There is cardiomegaly with left ventricular enlargement and a small amount of pericardial fluid. This was also present previously. There are atherosclerotic calcifications in the aorta and its branches. There is no evidence of aneurysm. The mesenteric and renal arteries are apparently patent although there is dense calcification at the ostia of the renal celiac and superior mesenteric arteries. 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 There is biliary dilatation both intra and extrahepatic and the common bile duct measures almost 16 mm in the pancreatic head. There are no visible stones. This was also the case at the time the previous study. There has been cholecystectomy. There is a mesh in the anterior abdominal wall. There is gas and stool in the colon. The stomach contains retained fluid and solid contents and the duodenal bulb and the second portion the duodenum are somewhat distended with gas and food particles. The jejunum is not particularly distended. There is some small bowel fluid. Compared to the previous examination, there is considerably less dilatation of more distal small bowel loops. Pelvis: There is apparent herniation of abdominal pelvic contents into the subcutaneous fat inferior and to the right of the mesh. This defect is slightly better demonstrated on the coronal reformation than on the axial images. The defect appears to be bracketed by clips or anchors. There are distended small bowel loops containing fluid and some fecalized contents. There is slightly less dilatation of these loops and on the previous examination. There is an additional spiculated lesion hernia on the left containing descending colon without evidence of obstruction. The urinary bladder is not distended. There is no evidence of free fluid. There are degenerative changes in the hips sacroiliac joints and lumbar spine. The regional skeleton appears to be stable. IMPRESSION: Ventral hernia in the lower abdomen/pelvis. Left spigelian hernia. Partial small bowel obstruction which has improved slightly since 12/20/2018. Other nonacute findings as described above. Electronically signed by Kiran Jeter 05/25/2019 7:56 AM
--- NOTE | 2019-05-25 11:29 | PROGRESS NOTE ---
DATE: 05/25/2019 SUBJECTIVE: This morning Ms. Jerry refers to be doing fairly okay. Still has some abdominal discomfort. NG tube is in place. OBJECTIVE: Vital signs: Blood pressure is 134/93, pulse of 130, respirations 20, temperature 98.7 degrees. The patient was saturating 94% on room air. General: Ms. Jerry is an 78-year-old female. She is in bed, not seemingly distressed. HEENT: Mucosa is pink and slightly dry. Anicteric. Acyanotic. Neck: Supple. Chest: Good air entry bilateral. There were no crepitations, no rhonchi. Cardiovascular: Regular rate and rhythm. Abdomen: Soft. It is minimally distended. There are some old surgical scars on the anterior abdominal wall. There is a remarkable hernia defect in the lower abdomen. 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 No focal neurological deficit. LABORATORY DATA: WBC is 13.15, hemoglobin is 10.7, platelet count is 213. Chemistry is also reviewed, is completely normal. Creatinine has normalized. CURRENT MEDICATIONS: Have also been reviewed. IMAGING STUDIES: Also show a CT scan showing a ventral hernia in the lower abdomen. There is also a left spigelian hernia. There is a partial small-bowel obstruction. A chest x-ray shows NG tube in stomach. ASSESSMENT: 1. Recurrent partial small-bowel obstruction. We are going to continue with medical management, nasogastric tube, bowel rest, adequate hydration and replacement of electrolyte abnormalities. General Surgery is on board. 2. Large inoperable ventral hernia noted. 3. Hypertension, stable. 4. History of hypothyroidism. We will continue with supplements with intravenous line. 5. Diabetes mellitus, controlled. 6. Dehydration with acute kidney injury, improved. cc: Ruddy Sanchez MD
--- NOTE | 2019-05-25 12:20 | PROVIDER DOCUMENTATION ---
This chart was entered by Denise Birmingham Scribe, acting as scribe for Lissy Sandoval MD. HPI-Abdominal Pain/GI Problem - General Chief Complaint: Abdominal Pain Stated Complaint: ABD PAIN Time Seen by Provider: 05/24/19 20:55 Source: patient Allergies/Adverse Reactions: Patient Allergies Allergy/AdvReac Type Severity Reaction Status Date / Time lorazepam [From Ativan] AdvReac Unknown Verified 05/25/19 00:23 Home Medications: Home Medication List Medication Instructions Recorded Confirmed Last Taken Type Dexlansoprazole [Dexilant] 60 mg PO BID 01/29/14 05/25/19 1 Day Ago History ~07/10/18 Levothyroxine [Synthroid] 25 microgm PO DAILY 01/29/14 05/25/19 1 Day Ago History ~07/10/18 Gabapentin 2 cap PO TID 12/02/16 05/25/19 1 Day Ago History ~07/10/18 Apixaban [Eliquis] 5 mg PO BID #60 tablet 12/07/16 05/25/19 1 Day Ago Rx ~07/10/18 Diltiazem HCl [Diltiazem 24Hr ER 120 mg PO DAILY 11/14/17 05/25/19 1 Day Ago History (Xr)] ~07/10/18 Potassium Chloride 10 meq PO DAILY 11/14/17 05/25/19 1 Day Ago History ~07/10/18 Amlodipine Besylate [Norvasc] 5 mg PO DAILY 11/07/18 05/25/19 Unknown History Tizanidine [Zanaflex] 4 mg PO TID PRN 05/25/19 05/25/19 Unknown History - History of Present Illness-ABD Nature of Presenting Problems: Pt is 78/F presenting to ED w/ ABD pain that started around 5pm today, pain is LLQ and LUQ. Pt has hx of small bowel obstruction. Pt has had 3BM today. Abdominal Pain Onset Location: reports: LUQ, LLQ Pain Radiation: reports: no radiation Quality of Pain: reports: sharp Severity in ED: reports: severe Onset/Duration: reports: 4-6 hours ago Timing: reports: still present Exposure to sick contacts?: No Modifying Factors: improves with: nothing Associated Symptoms: denies: chest pain, constipation, diarrhea, nausea, vomiting Last BM: this afternoon Dark Stools Present?: reports: none noticed Rectal Bleeding: reports: none Rectal Pain: reports: none Emesis Description: reports: none Bruising or Bleeding Gums?: No Similar Symptoms Previously?: No Recently seen or treated by another doctor?: No Review of Systems - Adult - REVIEW OF SYSTEMS - ADULT Constitutional: denies: chills, fever Eyes: reports: no symptoms reported Ears, Nose, Mouth & Throat: reports: no symptoms reported Cardiovascular: reports: no symptoms reported. denies: chest pain Respiratory: reports: no symptoms reported Gastrointestinal: reports: abdominal pain. denies: diarrhea, nausea, vomiting Genitourinary: reports: no symptoms reported Neurological: denies: dizziness/vertigo, headache/migraines Psychiatric: reports: no symptoms reported Past History - Adult - PAST MEDICAL HISTORY-ADULT Review of Records: reports: Old Records Reviewed, Nursing Assessment Review, Medications Reviewed, Social history reviewed & non-contributory. Major Childhood Illnesses: reports: denies history Cardiovascular: reports: cardiac disease, HTN, hyperlipidemia, [place] Respiratory: reports: denies history Gastrointestinal: reports: obstruction, other (hernia) Obstetrical/Gynecological: reports: denies history Genitourinary: reports: denies history Musculoskeletal: reports: denies history Neurological: reports: CVA Psychiatric: reports: denies history Endocrine/Immune: reports: denies history Other Conditions: reports: deaf/hard of hearing - PRIOR SURGERIES/PROCEDURES Surgical/Procedure History: reports: cholecystectomy, hysterectomy, hernia repair, bowel surgery (obstruction), other (gall bladder) - PRIOR HOSPITALIZATIONS Prior Hospitalizations: reports: for similar symptoms - IMMUNIZATION STATUS Childhood Immunizations: UTD Flu Vaccine: NUTD - FAMILY HISTORY Family History: ulcers Physical Exam-General - PHYSICAL EXAM-ADULT Initial Vital Signs Reviewed: Yes - CONSTITUTIONAL General Appearance: alert, mild distress - EYES Eyes: PERRL/EOMI - HEAD, EARS, NOSE, MOUTH & THROAT HENMT: normocephalic/atraumatic, moist mucous membranes - NECK Neck: non-tender, full range of motion, supple - RESPIRATORY Respiratory: lungs clear - CARDIOVASCULAR Cardiovascular: regular rate, rhythm - GASTROINTESTINAL (ABDOMEN) Abdominal Exam: soft, tenderness (luq,llq and epigastric). negative: normal bowel sounds (hyperactive bowel sounds), guarding, rigid, rebound - MUSCULOSKELETAL Back Exam: normal inspection, no CVA tenderness, no vertebral tenderness Extremity: normal range of motion, non-tender - SKIN Integumentary: normal color, warm/dry - NEUROLOGIC Neurologic: grossly normal - PSYCHIATRIC Psych/Mental Status: normal thought content, normal thought process Progress - PLAN OF CARE/RESULTS Progress/Plan/Lab Results: Vital Signs - 8 hr 05/24/19 21:06 Temperature 98.8 F Pulse Rate 81 Respiratory Rate 26 H Blood Pressure 176/97 O2 Sat by Pulse Oximetry 97 Laboratory Results - last 24 hr 05/24/19 05/24/19 05/24/19 20:50 20:56 20:56 WBC 7.85 RBC 4.66 Hgb 10.3 L Hct 33.8 L MCV 72.5 L MCH 22.1 L MCHC 30.5 L RDW Std Deviation 19.1 H Plt Count 238 MPV 10.4 Immature Gran % (Auto) 0.4 Neut % (Auto) 64.5 Lymph % (Auto) 23.3 [place] % (Auto) 9.0 Eos % (Auto) 2.3 Baso % (Auto) 0.5 Immature Gran # (Auto) 0.03 Neut # (Auto) 5.06 Lymph # (Auto) 1.83 [place] # (Auto) 0.71 H Eos # (Auto) 0.18 Baso # (Auto) 0.04 Sodium 140 Potassium 4.2 Chloride 101 Carbon Dioxide 26 Anion Gap 13 BUN 20 Creatinine 1.1 H Estimated GFR/1.73 m2 48 BUN/Creatinine Ratio 18 Glucose 116 H Calculated Osmolality 283 Calcium 9.5 Total Bilirubin 0.37 AST 15 ALT 12 Alkaline Phosphatase 75 Total Protein 6.8 Albumin 4.1 Globulin 2.7 Albumin/Globulin Ratio 1.5 Amylase 28 Lipase 26 Plasma Lactate Urine Source CLEAN CATCH Urine Color YELLOW Urine Turbidity CLEAR Urine pH 7.0 Ur Specific [place] 1.011 Urine Protein NEGATIVE Ur Glucose (Stick) NEGATIVE Ur Ketones (Stick) NEGATIVE Urine Blood NEGATIVE Urine Nitrite NEGATIVE Urine Bilirubin NEGATIVE Urobilinogen Dipstick NORMAL Urine Leukocytes NEGATIVE Urine WBC (Auto) <10 Urine RBC (Auto) <10 U Epithel Cells (Auto) <10 Urine Bacteria (Auto) NEGATIVE 05/24/19 20:56 WBC RBC Hgb Hct MCV MCH MCHC RDW Std Deviation Plt Count MPV Immature Gran % (Auto) Neut % (Auto) Lymph % (Auto) [place] % (Auto) Eos % (Auto) Baso % (Auto) Immature Gran # (Auto) Neut # (Auto) Lymph # (Auto) [place] # (Auto) Eos # (Auto) Baso # (Auto) Sodium Potassium Chloride Carbon Dioxide Anion Gap BUN Creatinine Estimated GFR/1.73 m2 BUN/Creatinine Ratio Glucose Calculated Osmolality Calcium Total Bilirubin AST ALT Alkaline Phosphatase Total Protein Albumin Globulin Albumin/Globulin Ratio Amylase Lipase Plasma Lactate 1.1 Urine Source Urine Color Urine Turbidity Urine pH Ur Specific [place] Urine Protein Ur Glucose (Stick) Ur Ketones (Stick) Urine Blood Urine Nitrite Urine Bilirubin Urobilinogen Dipstick Urine Leukocytes Urine WBC (Auto) Urine RBC (Auto) U Epithel Cells (Auto) Urine Bacteria (Auto) Orders Category Date Time Status CT ABD/PELVIS W/IV CONT ONLY [CT] Stat Exams 05/24/19 21:09 Ordered AMYLASE [CHEM] Stat Lab 05/24/19 20:56 Completed CBC WITH ELECTRONIC DIFF [HEME] Stat Lab 05/24/19 20:56 Completed COMPREHENSIVE METABOLIC PANEL [CHEM] Stat Lab 05/24/19 20:56 Completed LACTATE, PLASMA [CHEM] Stat Lab 05/24/19 20:56 Completed LIPASE [CHEM] Stat Lab 05/24/19 20:56 Completed URINALYSIS [URINALYSIS] Stat Lab 05/24/19 20:50 Completed Morphine Med 05/24/19 21:06 Discontinued 8 mg IV NOW ONE Ondansetron [Zofran] Med 05/24/19 21:06 Discontinued 8 mg IV NOW ONE Result Diagrams: 05/25/19 06:14 05/25/19 06:14 - REASSESSMENT Reassessment #1 Time Reassessed: 22:02 Status: improving (pt report less pain, denies other complaints.) - CT/MRI 1 CT Study: Abdomen Impression: Abnormal (EXAM: CT ABD/PELVIS W/IV CONT ONLY 05/24/2019 HISTORY: abdominal pain, recurrent SBO TECHNIQUE: This exam was performed using automated exposure control, adjustment of mA or kV according to patient size, and/or use of iterative reconstruction technique. COMMENT: There is apparent focal fibrotic change in the posterior costophrenic sulcus of the left lower lobe which has not changed since 12/20/2018. There is cardiomegaly with left ventricular enlargement and a small amount of pericardial fluid. This was also present previously. There are atherosclerotic calcifications in the aorta and its branches. There is no evidence of aneurysm. The mesenteric and renal arteries are apparently patent although there is dense calcification at the ostia of the renal celiac and superior mesenteric arteries. 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 There is biliary dilatation both intra and extrahepatic and the common bile duct measures almost 16 mm in the pancreatic head. There are no visible stones. This was also the case at the time the previous study. There has been cholecystectomy. There is a mesh in the anterior abdominal wall. There is gas and stool in the colon. The stomach contains retained fluid and solid contents and the duodenal bulb and the second portion the duodenum are somewhat distended with gas and food particles. The jejunum is not particularly distended. There is some small bowel fluid. Compared to the previous examination, there is considerably less dilatation of more distal small bowel loops. Pelvis: There is apparent herniation of abdominal pelvic contents into the subcutaneous fat inferior and to the right of the mesh. This defect is slightly better demonstrated on the coronal reformation than on the axial images. The defect appears to be bracketed by clips or anchors. There are distended small bowel loops containing fluid and some fecalized contents. There is slightly less dilatation of these loops and on the previous examination. There is an additional spiculated lesion hernia on the left containing descending colon without evidence of obstruction. The urinary bladder is not distended. There is no evidence of free fluid. There are degenerative changes in the hips sacroiliac joints and lumbar spine. The regional skeleton appears to be stable. IMPRESSION: Ventral hernia in the lower abdomen/pelvis. Left spigelian hernia. Partial small bowel obstruction which has improved slightly since 12/20/2018. Other nonacute findings as described above. Electronically signed by Kiran Jeter 05/25/2019 7:56 AM) - CONSULTS/PCP/HOSPITALIST Notification #1 *Consult/PCP/Hospitalist*: Dr. Gagnon Time Discussed: 22:50 (Will see in morning) Consult Disposition: Admit (Hx, PE and CT abdomen finding discussed, will see in the morning) #2 Consult: Dr. Carreon Time Discussed: 23:03 Consult Disposition: Admit (Hx, PE and pt care discussed, accepted.) Departure - Departure Date of Disposition Decision: 05/24/19 Time of Disposition Decision: 23:10 DIAGNOSIS: Small bowel obstruction Abdominal pain Qualifiers: Abdominal location: generalized Qualified Code(s): R10.84 - Generalized abdom inal pain Disposition: ADMITTED INPATIENT 09 Certified Medical Emergency: Emergent Condition: Stable - Critical Care Note This patient required my direct & personal management of CC.: No Attestation - Physician/ JOSE Attestation Patient care was provided by Advanced Practice Provider:: No The physician spent face to face time with patient:: Yes Advanced Practice Provider documentation review:: Supervising physician onsite and consulted in the evaluation and care of this patient. The physician did have a face to face encounter with the patient. This chart was documented by the indicated scribe, (Denise Birmingham, Thong) and accurately reflects the services I performed and decisions made by me, Lissy Stafford MD, as attested by the provider's signature.
[2019-05-25] MEDS: DILAUDID IV PRN (21:14)
[2019-05-25] MEDS: ELIQUIS PO SCH (23:55)
[2019-05-26] MEDS: DILAUDID IV PRN ×4 (01:26→21:52)
[2019-05-26] MEDS: ZOFRAN IV PRN ×3 (03:39→21:52)
[2019-05-26] MEDS: HALDOL IM PRN ×2 (03:41→13:43)
--- NOTE | 2019-05-26 09:50 | GENERAL SURGERY PROGRESS NOTE ---
DATE: 05/26/2019 Ms. Jerry sitting up. She is afebrile. Heart rate is recorded at 47, blood pressure 155/107. She has some bile in her NG, output 50 mL recorded. Abdomen is nontender. The plan is continued NG suction and hydration. I would not plan operative intervention due to her multiple abdominal operations and through the adhesions that she has she should improve with time. She also says she is not going to have any more surgery. cc: Jigar Mae MD
[2019-05-26] MEDS: ELIQUIS PO SCH ×2 (10:24→21:52)
[2019-05-26] MEDS ORDERED: SODIUM CHLORIDE 0.9% INJ PRN (12:05)
[2019-05-26] MEDS ORDERED: PROTONIX IV SCH (12:15)
--- NOTE | 2019-05-26 12:38 | Diag Imaging Result Doc PS360 ---
EXAM: KUB ABDOMEN 05/26/2019 HISTORY: SBO TECHNIQUE: KUB COMMENT: There is gas and stool throughout much of the colon and gaseous dilatation of multiple small bowel loops is present. There is gas and stool in the rectum. There is an NG tube with its tip in the stomach. Compared to 12/23/2018 there is less colonic gas and more small bowel gas. IMPRESSION: Probable ileus. Electronically signed by Kiran Jeter 05/26/2019 12:35 PM
--- NOTE | 2019-05-26 13:16 | PROGRESS NOTE ---
DATE: 05/26/2019 SUBJECTIVE: This morning Ms. Jerry refers to be hurting a little bit in the abdomen, but otherwise unremarkable. OBJECTIVE: Vital signs: Blood pressure is 155/107, respirations 22, temperature is 98.6 degrees. The patient is saturating 100% on room air. General: Ms. Jerry is an 78-year-old female, she is in bed, in no distress. HEENT: Mucosa is pink and moist. Anicteric. Acyanotic. Neck: Supple. Chest: Good air entry bilaterally. There was no crepitation, no rhonchi. Cardiovascular: Regular rate and rhythm. Abdomen: Soft, nontender. Bowel sounds are present. They are a little hyperactive. There are some old surgical scars on the anterior abdominal wall. There is a remarkable hernia defect in the lower abdomen. ACCREDITED FARM MANAGER: The patient is awake, alert, and oriented. LABORATORY DATA: None for today. ASSESSMENT AND PLAN: 1. Recurrent partial small-bowel obstructions. The patient's NG tube is in place. Surgery on board. Recommendation is to continue medical management. 2. Large, inoperable ventral hernia noted. 3. Hypertension. 4. History of hypothyroidism. Patient is on supplement. 5. Diabetes mellitus, controlled. 6. Acute kidney injury secondary to dehydration, resolved. 7. History of multiple abdominal surgeries noted. cc: Ruddy Sanchez MD
[2019-05-26] MEDS: APRESOLINE IV PRN (13:57)
[2019-05-26] MEDS: NEXIUM IV SCH (13:57)
[2019-05-26] MEDS: SODIUM CHLORIDE 0.9% INJ SCH (14:02)
[2019-05-27] MEDS: HALDOL IM PRN ×3 (02:30→21:43)
[2019-05-27] MEDS: DILAUDID IV PRN ×2 (05:07→20:39)
[2019-05-27] MEDS: SYNTHROID IV SCH ×2 (05:50→06:07)
[2019-05-27 06:17] LABS: HEMATOCRIT 35.4 % (37.0-47.0); HEMOGLOBIN 10.6 g/dL (12.0-16.0); MCH 22.2 PG (27-31); MCHC 29.9 g/dL (33-37); MCV 74.2 FL (81-99); MPV 10.2 FL (7.4-10.4); RBC 4.77 XMIL (4.2-5.4); RDW 19.9 % (11.5-14.5); WBC 9.39 X1000 (4.8-10.8)
[2019-05-27 06:29] LABS: AGAP 11; ALBUMIN 3.6 g/dL (3.5-5.0); BUN 24 mg/dL (8-22); CALCIUM 8.7 mg/dL (8.8-10.2); CHLORIDE 104 mmol/L (98-107); COSMO 282; CREATININE 0.8 mg/dL (0.5-0.9); ESTIMATED GFR > 60; GLUCOSE 113 mg/dL (70-104); POTASSIUM 3.8 mmol/L (3.5-5.1); SODIUM 139 mmol/L (136-145); TCO2 24 mmol/L (25-35)
[2019-05-27] MEDS: APRESOLINE IV PRN (07:51)
[2019-05-27] MEDS: ELIQUIS PO SCH ×3 (07:51→20:36)
--- NOTE | 2019-05-27 07:56 | GENERAL SURGERY PROGRESS NOTE ---
DATE: 05/27/2019 Ms. Jerry apparently pulled her NG tube out during the night. She says she does not feel well this morning. She says she feels like she is about to faint. Her hemodynamics so far have been satisfactory, even though we are checking her vital signs again. Her pulse in the radial artery feels strong. Intake yesterday 2079, output is 150 which is only 100 mL measured urine. NG tube only put out 50 mL. DIAGNOSTICS/LABS: White count today is 9400, hemoglobin 10.6. Chemistry shows a BUN of 24, creatinine 0.8. ASSESSMENT: She has a partial small-bowel obstruction versus ileus. PLAN: The plan will be to leave her NG tube out for now. We will repeat her x-ray. cc: Jigar Mae MD
--- NOTE | 2019-05-27 08:40 | Diag Imaging Result Doc PS360 ---
EXAM: KUB ABDOMEN 05/27/2019 HISTORY: sbo TECHNIQUE: KUB COMMENT: In comparison with the previous study of 05/26/2019 there appears to be a more predominant small bowel gas pattern with less apparent colonic gas. There are markedly distended small bowel loops in the midabdomen. This is consistent with a small bowel obstruction. IMPRESSION: Small bowel obstruction. Electronically signed by Kiran Jeter 05/27/2019 8:38 AM
[2019-05-27] MEDS: NEXIUM IV SCH (14:02)
--- NOTE | 2019-05-27 14:39 | PROGRESS NOTE ---
DATE: 05/27/2019 SUBJECTIVE: Today Ms. Jerry refers to be doing well. Still has some abdominal discomfort but for most part, no new complaints. According to the nurses, she did pull out her NG tube early this morning. OBJECTIVE: Vital signs: Blood pressure is 147/79, pulse of 120, respirations 20, temperature 98 degrees. The patient was saturating 98%. General: Ms. Jerry is an 78-year-old female. She is in bed, no distress. HEENT: Mucosa is pink and slightly dry. Anicteric. Acyanotic. Neck: Supple. Chest: Good air entry bilateral. There is no crepitations, no rhonchi. Cardiovascular: Slightly tachycardic but no murmurs, no rubs, no gallops. GI: Abdomen is soft. It is distended. Bowel sounds are slightly hyperactive. There are multiple old surgical scars on the anterior abdominal wall. There is a large remarkable hernia defect in the lower abdomen. STEPDOWN NURSE: Patient is awake, alert, and oriented. LABORATORY DATA: WBC is 9.39, hemoglobin is 10.6, platelet count of 255,000. Chemistry is also reviewed and is unremarkable. Creatinine is 0.8. ASSESSMENT: 1. Recurrent partial small bowel obstructions. Patient has inadvertently removed her NG tube. She seems to be doing fairly okay. No nausea. No vomiting. So, we will keep her NPO and keep the NG tube out. 2. Large inoperable ventral hernia, noted. 3. Hypertension, controlled. 4. Hypothyroidism. Patient is on thyroid supplementation. We have changed this to IV. 5. Diabetes mellitus, controlled. 6. Acute kidney injury secondary to dehydration, resolved. 7. History of multiple abdominal surgeries. cc: Ruddy Sanchez MD
[2019-05-28] MEDS: HALDOL IM PRN ×3 (00:09→14:04)
[2019-05-28] MEDS: DILAUDID IV PRN ×5 (02:15→22:03)
[2019-05-28] MEDS: SYNTHROID IV SCH (06:16)
--- NOTE | 2019-05-28 07:52 | GENERAL SURGERY PROGRESS NOTE ---
DATE: 05/28/2019 SUBJECTIVE: The patient seems to be agitated. Nursing staff is in the room. The patient has been trying to get out of bed several times. She does have a bowel movement recorded. OBJECTIVE: Vital Signs: The patient is currently afebrile. Her vital signs are stable. General Examination: Somewhat confused female. Looks stated age. HEENT: Normocephalic, atraumatic. Pupils equal, round, reactive to light. Mucous membranes moist. Oropharynx benign. Neck: Supple. Trachea midline. Cardiovascular: Regular rate and rhythm. Lungs: Grossly clear. Abdomen: Soft, nontender, nondistended. Extremities: Moves all extremities. Neurologic: Somewhat confused. Vascular: All extremities perfused. Laboratory: None this morning as of yet. Abdominal films reviewed from the weekend. Abdominal film from this morning pending. ASSESSMENT AND PLAN: An 78-year-old female with small-bowel obstruction. Small bowel obstruction. At this time, it may be somewhat resolving. She is having bowel movements. Would like to get followup with an abdominal film from this morning to see if it is clinically improving. Otherwise, continue current treatment. Her neurologic status has been somewhat of an issue. She is confused. We will need to monitor her. cc: Wayne Gagnon MD
[2019-05-28] MEDS: ELIQUIS PO SCH ×2 (08:05→22:03)
--- NOTE | 2019-05-28 10:03 | Diag Imaging Result Doc PS360 ---
EXAM: KUB ABDOMEN HISTORY: SBO TECHNIQUE: Abdomen single view COMPARISON: 05/27/2019 FINDINGS: The bowel loops are not dilated. No organomegaly. Mild scoliosis with degenerative spine changes. Skin trell and surgical clips overlie the abdomen. IMPRESSION: No definite bowel obstruction. Electronically signed by Mika Armas 05/28/2019 10:01 AM
[2019-05-28] MEDS: SODIUM CHLORIDE 0.9% INJ SCH (14:05)
[2019-05-28] MEDS: NEXIUM IV SCH (14:05)
--- NOTE | 2019-05-28 14:30 | PROGRESS NOTE ---
DATE: 05/28/2019 SUBJECTIVE: This morning Ms. Jerry was sleeping, but she was easily arousable. Per the nursing staff, she seems to be delirious at night OBJECTIVE: Vital signs: Blood pressure 124/79, pulse of 101, respirations 20, and temperature 97.6 degrees. General: Ms. Jerry is an 78 years old elderly female. She is in bed. She was sleeping in no distress. Mucosa is pink and moist. Anicteric. Acyanotic. Neck: Supple. Chest: Good air entry bilateral. There were no crepitations. Cardiovascular: Regular rate and rhythm. Abdomen: Soft and distended. Bowel sounds were present. There are old multiple scars around the anterior abdominal wall. There was also a large remarkable hernia defect in the lower abdomen. LOGGING ENGINEER: Ms. Jerry was sleeping, but she was easily arousable. She did not have any focal deficits. LABORATORY DATA: Glucose was 114. A KUB this morning seems to show no definite bowel obstruction. Patient's I's and O's, there was a documented bowel movement yesterday. ASSESSMENT: 1. Recurrent partial small bowel obstruction. The patient seems to be doing pretty well. She has not had any more vomiting. A KUB this morning seems to suggest some improvement. She is still NPO and will continue adequate hydration and electrolyte replacement. 2. Large inoperable ventral hernia. Surgery is on board. 3. Hypertension is controlled. 4. Hypothyroidism. We will continue with supplement. 5. Diabetes mellitus controlled. 6. Acute kidney injury secondary to dehydration on presentation resolved. 7. Multiple prior abdominal surgeries noted. 8. Delirium likely secondary to hospital stay in an elderly patient. We will try as much as possible to avoid any possible sedatives or any medication with potential side effects of that. We will also correct any possible metabolic abnormality that could precipitate this. cc: MD THERESA Gant
[2019-05-29] MEDS: SYNTHROID IV SCH (06:40)
--- NOTE | 2019-05-29 07:11 | Diag Imaging Result Doc PS360 ---
EXAM: KUB ABDOMEN 05/29/2019 HISTORY: SBO TECHNIQUE: Portable KUB at 0618 COMMENT: There is colonic and small bowel gas similar in appearance to 05/28/2019. There is still some apparent formed stool in the transverse colon. There are some distended small bowel loop seen over the lower pelvis presumably in the ventral hernia which was demonstrated on the CT of 05/24/2019. IMPRESSION: Partial small bowel obstruction versus ileus. Constipation. Electronically signed by Kiran Jeter 05/29/2019 7:09 AM
[2019-05-29 07:12] LABS: BASO# 0.02 X1000 (0.0-0.2); BASO% 0.2 % (0.0-0.8); EOS# 0.05 X1000 (0.0-0.7); EOS% 0.5 % (0.0-10.0); HEMOGLOBIN 11.8 g/dL (12.0-16.0); IMM GRAN# 0.03 X1000 (0.0-0.04); IMM GRAN% 0.3 % (0.0-0.5); LYMPH# 1.11 X1000 (1.2-3.4); LYMPH% 12.1 % (20.5-51.1); MCH 22.2 PG (27-31); MCHC 31.1 g/dL (33-37); MCV 71.4 FL (81-99); MONO# 0.87 X1000 (0.11-0.59); MONO% 9.5 % (1.7-9.3); MPV 10.4 FL (7.4-10.4); NEUT# 7.07 X1000 (1.4-6.5); NEUT% 77.4 % (42.2-75.2); PLT 270 X1000 (130-400); RBC 5.32 XMIL (4.2-5.4); WBC 9.15 X1000 (4.8-10.8)
[2019-05-29 07:34] LABS: AGAP 18; ALBUMIN 3.8 g/dL (3.5-5.0); BUN 15 mg/dL (8-22); CALCIUM 8.8 mg/dL (8.8-10.2); CHLORIDE 100 mmol/L (98-107); COSMO 276; CREATININE 0.6 mg/dL (0.5-0.9); ESTIMATED GFR > 60; GLUCOSE 93 mg/dL (70-104); PHOSPHORUS 2.3 mg/dL (2.7-4.5); POTASSIUM 3.1 mmol/L (3.5-5.1); SODIUM 138 mmol/L (136-145); TCO2 20 mmol/L (25-35)
--- NOTE | 2019-05-29 08:40 | GENERAL SURGERY PROGRESS NOTE ---
DATE: 05/29/2019 SUBJECTIVE: The patient seems to be doing a little bit better, a little more oriented this morning. Her abdominal film yesterday showed improvement. OBJECTIVE: Vital Signs: The patient is currently afebrile. Her vital signs are stable. General Examination: No acute distress. HEENT: Normocephalic, atraumatic. Pupils equal, round, reactive to light. Mucous membranes moist. Oropharynx benign. Neck: Supple. Trachea midline. Cardiovascular: Regular rate and rhythm. Lungs: Grossly clear. Abdomen: Soft, nontender, nondistended. Extremities: Moves all extremities. Neurologic: Grossly intact. Skin: No signs of jaundice. Vascular: All extremities perfused. Laboratory: None this morning as of yet. ASSESSMENT AND PLAN: An 78-year-old female with a resolving small bowel obstruction. Resolving small bowel obstruction. At this time, we will start her on clear liquids. We will monitor. Her neurologic status seems to be somewhat improved. We will continue nonoperative care. cc: Wayne Gagnon MD
[2019-05-29] MEDS: ELIQUIS PO SCH (08:54)
[2019-05-29] MEDS: DILAUDID IV PRN (10:21)
[2019-05-29 11:22] VITALS: BP 94/61
[2019-05-29 11:37] LABS: IRON SATURATION 9 %; TIBC 296 ug/dL; TOTAL IRON 28 ug/dL (49-151); UNBOUND IRON 268 ug/dL (112-346)
[2019-05-29 11:57] LABS: FERRITIN 39 ng/mL (13-150)
--- NOTE | 2019-05-30 10:06 | DISCHARGE SUMMARY ---
ADMISSION DATE: 05/25/2019 DISCHARGE DATE: 05/29/2019 CONSULTATIONS DURING THIS ADMISSION: Surgery was consulted. The patient was seen by Dr. Gagnon. INVASIVE PROCEDURES DONE DURING THIS ADMISSION: None. IMAGING STUDIES OF SIGNIFICANCE: 1. CT scan of the abdomen and pelvis revealed ventral hernia in the lower abdomen, partial small- bowel obstruction. 2. Multiple KUBs were done subsequently. This morning, it still shows partial small-bowel obstruction versus ileus, and some constipation. ADMISSION DIAGNOSES: 1. Recurrent small-bowel obstruction. 2. Hypertension. 3. Atrial fibrillation. 4. Hypothyroidism. DIAGNOSES AT TIME OF LEAVING AGAINST MEDICAL ADVICE: 1. Recurrent partial small-bowel obstruction. 2. Large inoperable ventral hernia. 3. Hypertension. 4. Hypothyroidism. 5. Diabetes mellitus. 6. Acute kidney injury secondary to dehydration, resolved. 7. Multiple prior abdominal surgeries. 8. Altered mental status during the hospital course, most likely secondary to delirium. 9. Microcytic anemia secondary to iron deficiency. PRESENTING COMPLAINT: Abdominal pain. HISTORY OF PRESENTING COMPLAINT: Ms. Jerry is an 78-year-old, elderly, female with history of recurrent multiple small-bowel obstructions, inoperable ventral hernia, hypertension, who came to the emergency department because of abdominal pain. Upon presentation, she was evaluated, including imaging studies, which revealed that the patient had partial small bowel. An NG tube was put in place, and the patient was admitted for medical management. Surgery was consulted. The patient was seen by Dr. Gagnon. During the hospital course, Ms. Jerry was adequately fluid resuscitated. All electrolytes were replaced. She was progressively getting better. Unfortunately, she developed delirium during the hospital course, and she pulled out her NG tube. She became a little bit more agitated. I understand on multiple occasions, she tried to hurt some of the nursing staff who were tending to her. She was given a couple doses of Haldol. Unfortunately this morning, the son was extremely upset that the mother, first of all was given morphine, which I did not see it in the chart that she has been given, and that he did not also want Haldol to be given to her, and he said he would take his mother home, and if the mother developed any problem, he would be sure never to come back to [facility] and that he would go somewhere else. I was there myself with the charge nurse, and we tried our best to explain that delirium during the hospital course is extremely common, especially for the elderly, and that it could be so many factors precipitating that. However, the son was so bent on the fact that this was all medication induced and that the mother is never like that. In any case, this morning, Ms. Jerry looks a whole lot better. She was responding more appropriately to me, and I thought she was getting well. Surgery had already seen her, and they have recommended clear liquids to start today. In any case, the son has signed AGAINST MEDICAL ADVICE and will take his mother home. cc: Ruddy Sanchez MD
== END 2019-05-29 12:09 | disposition left against medical advice (07) | DRG 394 ==
LOC: SUPCPDRO → ED 20:39 → SUATTDRO 05-25 00:10 → 4N 05-25 00:10
PROVIDERS: ATTEND Internal Medicine
CPT/HCPCS: 71010; 71045; 74000; 74018; 74177; 80048; 80053; 80069; 81001; 82150; 82607; 82728; 82746; 82948; 83540; 83550; 83605; 83690; 85025; 85027; 94761; 96361; 96374; 96375; 96376; 99285; A9270; J0360; J1170; J1630; J2270; J2405; J7030; Q9967; XXXXX